=== PATIENT | female | born 1945 | race Caucasian/White ===

== ENCOUNTER 2023-12-15 14:11 | Outpatient (OUT) | payer MEDICARE, OTHER, SELFPAY ==
[2023-12-16 16:10] LABS: Deamidated Gliadin Abs, IgA 7 units (0-19); Deamidated Gliadin Abs, IgG 4 units (0-19); Endomysial Antibody IgA Negative (Negative); Immunoglobulin A, Qn, Serum 91 mg/dL (64-422); t-Transglutaminase (tTG) IgA <2 U/mL (0-3); t-Transglutaminase (tTG) IgG 2 U/mL (0-5)
== END 2023-12-15 14:12 | disposition home or self-care (01) ==
LOC: LAB 14:11
DX: R19.7 Diarrhea, unspecified (principal); L50.0 Allergic urticaria
CPT/HCPCS: 36415; 82784; 86003; 86231; 86258; 86364

== ENCOUNTER 2024-02-09 13:35 | Outpatient (OUT) | payer MEDICARE, OTHER, SELFPAY ==
[2024-02-09 14:26] LABS: Erythrocyte Sedimentation Rate 4 mm/hr (<=30)
[2024-02-09 14:29] LABS: Bilirubin Urine NEGATIVE (NEGATIVE); Blood Urine NEGATIVE (NEGATIVE); Clarity Urine CLEAR (CLEAR); Color Urine YELLOW (YELLOW); Glucose Urine UA NEGATIVE (NEGATIVE); Ketones Urine TRACE mg/dL (NEGATIVE); Leukocyte Esterase Urine NEGATIVE (NEGATIVE); Nitrite Urine NEGATIVE (NEGATIVE); Protein Urine NEGATIVE (NEG/TRACE); Specific Gravity Urine >=1.030 (1.005-1.025); Urobilinogen Urine 0.2 EU/dL (0.2-1.0); pH Urine 5.5 (5.0-9.0)
[2024-02-09 14:41] LABS: Basophils Absolute Auto 0.1 10^3/uL (0.0-0.1); Basophils Percent Auto 0.8 % (0.2-2.0); Eosinophils Absolute Auto 0.3 10^3/uL (0.0-0.7); Eosinophils Percent Auto 3.8 % (0.9-7.0); Hemoglobin 13.3 g/dL (12.0-16.0); Immature Granulocytes Abs Auto 0.03 10^3/uL (0.00-0.03); Immature Granulocytes Pct Auto 0.4 % (0.0-0.5); Lymphocytes Absolute Auto 1.6 10^3/uL (1.2-3.8); Mean Corpuscular HGB Conc 34.1 g/dL (29.9-35.2); Mean Corpuscular Hemoglobin 30.1 pg (26.7-34.0); Mean Corpuscular Volume 88.2 fL (81.0-99.0); Mean Platelet Volume 9.9 fL (9.5-13.5); Monocytes Absolute Auto 0.8 10^3/uL (0.3-0.8); Monocytes Percent Auto 10.7 % (1.7-12.0); Neutrophils Absolute Auto 4.7 10^3/uL (1.4-6.5); Neutrophils Percent Auto 62.3 % (43.0-75.0); Platelet Count 152 10^3/uL (150-450); Red Blood Count 4.42 10^6/uL (4.20-5.40); Red Cell Distribution Width 11.9 % (11.0-15.0); White Blood Count 7.5 10^3/uL (4.0-11.0)
[2024-02-09 14:47] LABS: C Reactive Protein <0.50 mg/dL (<=0.50); Estimated GFR (African America >60 (>=60); Estimated GFR (Non-African Ame >60 (>=60)
[2024-02-09 14:50] LABS: Bacteria Urine SMALL #/HPF (NONE SEEN); Crystals Seen? None Seen #/HPF (None Seen); Mucus Urine MODERATE (NONE SEEN); Squamous Epithelial Cell Urine RARE #/LPF (NONE/RARE); WBC Urine 0-2 #/HPF (NONE SEEN)
[2024-02-09 14:51] LABS: Cast Seen? NONE SEEN #/LPF (NONE SEEN)
== END 2024-02-09 13:36 | disposition home or self-care (01) ==
LOC: LAB 13:37
PROVIDERS: Visit Provider Internal Medicine Rheumatology
DX: M35.9 Systemic involvement of connective tissue, unspecified (principal)
CPT/HCPCS: 36415; 81001; 82565; 85025; 85652; 86140

== ENCOUNTER 2024-07-14 12:22 | Outpatient (OUT) | payer MEDICARE, OTHER, SELFPAY ==
--- OUTSIDE RECORDS SUMMARY | 2024-07-14 12:27 | XMS_ITS | CCD ---
Author Organization [facility] Care Team Providers Care Mailroom Personnel Name Role Phone ADELINA TsaiJIAN Galaviz A Primary Care Provider MD Amanda Hannon Attending Provider DR AMANDA HANNON Consulting Unavailable GINA, BELLA Primary Care Unavailable DR AMANDA HANNON Attending Unavailable DR AMANDA HANNON Admitting Unavailable ADELINA TsaiBC Bella A Primary Care Provider MD Amanda Hannon Attending Provider GINA, BELLA A Primary Care Unavailable JANE OLMEDO Primary Care UnavailDELBERT Kwon Attending Unavailable AMANDA HANNON Referring Unavailable ADELINA TsaiBC Bella A Primary Care Provider MD Amanda Hannon Attending Provider Amanda Hannon Admitting Unavailable Gina, Bella A Primary Care Unavailable Amanda Hannon Attending Unavailable Amanda Hannon Attending Unavailable Gina, Bella A Primary Care Unavailable Amanda Hannon Admitting Unavailable Gina, Bella A Primary Care Unavailable Amanda Hannon Admitting Unavailable Amanda Hannon Attending Unavailable Amanda Hannon Admitting Unavailable Gina, Bella A Primary Care Unavailable Amanda Hannon Attending Unavailable Amanda Hannon Admitting Unavailable Gina, Bella A Primary Care Unavailable Amanda Hannon Attending Unavailable Mary Emery MD Primary Care Provider SHERRY SINCLAIR Attending Unavailable MARY EMERY Referring Unavailable MARY EMERY Primary Care Unavailable MARY EMERY Attending Unavailable MARY EMERY Referring Unavailable YULY, MUHAMID M Primary Care Unavailable RADHA, MOHAMMED Attending Unavailable YULY, MUHAMID M Referring Unavailable YULY, MUHAMID M Primary Care Unavailable RADHA, MOHAMMED Attending Unavailable YULY, MUHAMID M Referring Unavailable YULY, MUHAMID M Primary Care Unavailable RADHA, MOHAMMED Attending Unavailable YULY, MUHAMID M Referring Unavailable YULY, MUHAMID M Primary Care Unavailable RADHA, MOHAMMED Attending Unavailable YULY, MUHAMID M Referring Unavailable YULY, MUHAMID M Primary Care Unavailable YULY, MUHAMID M Referring Unavailable YULY, MUHAMID M Primary Care Unavailable ALEJANDRA CHAVEZ Attending Unavailable RAMQUINTON, ALEJANDRA Baez Attending Unavailable ALEJANDRA CHAVEZ Attending Unavailable ALEJANDRA CHAVEZ Attending Unavailable RAMQUINTON, ALEJANDRA Baez Attending Unavailable RAMBASERacquel, ALEJANDRA Baez Attending Unavailable ALBERTO CROCKETT Attending Unavailable Allergies Allergy Classification Reported Allergen(s) Allergy Type Date of Onset Reaction(s) Facility (10 sources) Cortisone; Translations: [CORTISONE] Drug Allergy 9 Unknown Reaction [facility] (10 sources) Penicillins; Translations: [PENICILLINS] Allergy to substance 7 Rash [facility] (1 source) Hydroxychloroqu ine; Translations: [HYDROXYCHLOROQ UINE] Drug Allergy 3 [facility] Repository (3 sources) WALNUT; Translations: [WALNUT] Propensity to adverse reactions to drug (disorder) 9 Facial Swelling [facility] Repository (2 sources) predniSONE; Translations: [PREDNISONE] Drug Allergy 8 [facility] (2 sources) Sodium Fluoride; Translations: [FLUORIDE (SODIUM)] Drug Allergy 8 [facility] Medications Current Medications Medication Drug Class(es) Dates Sig (Normalized) Sig (Original) ascorbic acid 500 mg oral tablet (6 sources) Vitamin C Start: 08-01-2020 take 1 tablet by mouth once daily Ascorbic Acid (Vitamin C) (Vitamin C) 500 mg Tablet Active 500 MG PO Daily August 01, 2020 12:00am Cbd (6 sources) Start: 08-01-2020 Cbd Active August 01, 2020 2:54pm Start: 08-01-2020 Cbd Active Jul 12:00am Start: 08-01-2020 Cbd Active Oct scott 2019 11:00pm cholecalciferol 0.025 mg oral tablet (6 sources) Vitamin D Start: 08-01-2020 take 1 tablet by mouth once daily Cholecalciferol (Vitamin D3) (Vitamin D3) 25 mcg (1,000 unit) Tablet Active 25 MCG PO Daily August 01, 2020 12:00am clonazePAM 0.5 mg oral tablet (1 source) Benzodiazepine Start: 09-13-2023 take 1 tablet by mouth twice daily as needed clonazePAM (KlonoPIN) 0.5 mg tablet Indications: Primary insomnia Take 1 tablet (0.5 mg total) by mouth 2 (two) times a day as needed (insomnia) for up to 30 days. 60 tablet 0 09/13/2023 Active estradiol 0.1 mg/ml vaginal cream (1 source) Estrogen Start: 06-28-2023 estradioL (ESTRACE) 0.01 % (0.1 mg/gram) vaginal cream 1GM PV @HS 2X/WK 42.5 g 1 06/28/2023 Active fexofenadine hydrochloride 60 mg oral tablet (1 source) Histamine-1 Receptor Antagonist Start: 07-16-2023 take 1 tablet by mouth in the morning, then take 1 tablet by mouth at bedtime fexofenadine (LANA) 60 mg tablet Indications: Allergic urticaria Take 1 tablet (60 mg total) by mouth in the morning and 1 tablet (60 mg total) before bedtime. 60 tablet 2 07/16/2023 Active hydroxychloroquine sulfate 200 mg oral tablet (7 sources) Antimalarial, Antirheumatic Agent Start: 08-01-2020 Hydroxychloroquine (Plaquenil) 200 mg tablet Active 200 MG PO As Directed August 01, 2020 12:00am takes daily alternating with one tab twice daily Magnesium (6 sources) Start: 08-01-2020 take 250 mg by mouth once daily Magnesium Active 250 MG PO Daily August 01, 2020 2:54pm Start: 08-01-2020 take 250 mg by mouth once shaun y Magnesium Active 250 MG PO Daily August 01, 2020 12:00am Start: 08-01-2020 take 250 mg by mouth once shaun y Magnesium Active 250 MG PO Daily July 31, 2020 11:00pm melatonin 5 mg oral tablet (6 sources) Start: 08-01-2020 take 5 mg by mouth at bedtime Melatonin Active 5 MG PO Bedtime August 01, 2020 12:00am omeprazole 20 mg delayed release oral capsule (7 sources) Proton Pump Inhibitor Start: 12-23-2023 take 1 capsule by mouth in the morning omeprazole (PriLOSEC) 20 mg capsule Take 1 capsule (20 mg total) by mouth in the morning. 30 capsule 1 12/23/2023 Active Start: 08-01-2020 take 20 mg by mouth once daily Omeprazole Active 20 MG PO Daily August 01, 2020 12:00am turmeric/turmeric ext/pepr ext (turmeric-turmeric ext-pepper) 900-100-5 mg capsule (1 source) Start: 07-23-2020 turmeric/turmeric ext/pepr ext (turmeric-turmeric ext-pepper) 900-100-5 mg capsule daily. 0 07/23/2020 Active UNABLE TO FIND (1 source) UNABLE TO FIND M ed Name: CBD Oil mixed w/ lotion 0 Active vitamin b12 1 mg oral tablet (6 sources) Vitamin B12 Start: 08-01-2020 take 1 tablet by mouth once daily Cyanocobalamin (Vitamin B-12) (Vitamin B-12) 1,000 mcg Tablet Active 1000 MCG PO Daily August 01, 2020 12:00am Problems Active Problems Problem Classification Problem Date Documented Date Episodic/Chronic Cardiac dysrhythmias (2 sources) Multiple premature ventricular complexes; Translations: [Ventricular premature depolarization] Onset: 12-31-2020 12-31-2020 Chronic Cardiac dysrhythmias (1 source) Palpitations; Translations: [Palpitations] 03-22-2018 Episodic Conditions associated with dizziness or vertigo (4 sources) Dizziness; Translations: [Dizziness and giddiness] Onset: 12-31-2020 03-22-2018 Episodic Deficiency and other anemia (1 source) Anemia, unspecified; Translations: [ANEMIA UNSPECIFIED] Onset: 11-20-2022 Episodic Headache; including migraine (1 source) Headache; Translations: [Headache] 03-22-2018 Episodic Heart valve disorders (3 sources) Nonrheumatic aortic (valve) insufficiency; Translations: [Aortic valve disorders] Onset: 03-04-2023 03-04-2023 Chronic Immunizations and screening for infectious disease (6 sources) Direct Lizette test positive; Translations: [Other specified abnormal immunological findings in serum] 08-01-2020 Episodic Menopausal disorders (1 source) Atrophy of vagina; Translations: [Postmenopausal atrophic vaginitis] Onset: 11-14-2021 11-14-2021 Chronic Miscellaneous mental health disorders (1 source) Primary insomnia; Translations: [Primary insomnia] Onset: 03-17-2023 03-17-2023 Chronic Other and ill-defined heart disease (1 source) Diastolic dysfunction; Translations: [Other ill-defined heart diseases] Onset: 12-31-2020 12-31-2020 Chronic Other connective tissue disease (6 sources) Paraparesis; Translations: [Other symptoms and signs involving the musculoskeletal system] 08-01-2020 Episodic Other inflammatory condition of skin (4 sources) Itching of skin; Translations: [Pruritus, unspecified] 08-01-2020 Episodic Other inflammatory condition of skin (2 sources) Pruritus, unspecified; Translations: [Pruritus] 08-01-2020 Episodic Other upper respiratory disease (1 source) Throat irritation; Translations: [Other diseases of pharynx] 12-27-2023 Episodic Systemic lupus erythematosus and connective tissue disorders (12 sources) Undifferentiated connective tissue disease; Translations: [Systemic involvement of connective tissue, unspecified] Onset: 2011 08-01-2020 Chronic Unclassified (1 source) Other specified necrotizing vasculopathies; 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] Onset: 11-19-2022 Unclassified (1 source) 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; 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] Onset: 11-18-2022 Past or Other Problems Problem Classification Problem Date Documented Date Episodic/Chronic Congestive heart failure; nonhypertensive (1 source) Left heart failure; Translations: [Left ventricular failure, unspecified] Onset: 08-24-2022 Resolved: 04-07-2023 04-07-2023 Chronic Coronary atherosclerosis and other heart disease (1 source) Angina pectoris; Translations: [Angina pectoris, unspecified] Onset: 08-24-2022 Resolved: 04-07-2023 04-07-2023 Chronic Malaise and fatigue (1 source) Exhaustion; Translations: [Other fatigue] Onset: 11-04-2019 03-07-2021 Episodic Mood disorders (1 source) Mood disorders Onset: 08-31-2023 08-31-2023 Nonmalignant breast conditions (1 source) Mastodynia; Translations: [Mastodynia] Onset: 07-14-2017 Resolved: 01-22-2022 01-22-2022 Episodic Other aftercare (1 source) Removal of sutures done; Translations: [Encounter for removal of sutures] Onset: 10-05-2018 Resolved: 08-21-2021 08-21-2021 Episodic Other circulatory disease (1 source) Syncope due to orthostatic hypotension; Translations: [Orthostatic hypotension] Onset: 03-07-2021 03-07-2021 Episodic Other connective tissue disease (1 source) Fibromyalgia; Translations: [Fibromyalgia] Onset: 12-31-2020 12-31-2020 Episodic Other connective tissue disease (1 source) H/O: Disorder; Translations: [Personal history of other diseases of the musculoskeletal system and connective tissue] Onset: 12-31-2020 12-31-2020 Episodic Other connective tissue disease (1 source) Fibromyalgia; Translations: [Fibromyalgia] Onset: 12-31-2020 Episodic Other ear and sense organ disorders (1 source) Impacted cerumen in left ear; Translations: [Impacted cerumen, left ear] Onset: 12-09-2020 12-09-2020 Episodic Other lower respiratory disease (1 source) Dyspnea on exertion; Translations: [Other forms of dyspnea] Onset: 03-24-2018 03-24-2018 Episodic Other screening for suspected conditions (not mental disorders or infectious disease) (7 sources) Complement level below reference range; Translations: [Other specified abnormal findings of blood chemistry] Onset: 2011 08-01-2020 Episodic Other skin disorders (1 source) Eruption; Translations: [Rash and other nonspecific skin eruption] Onset: 07-27-2019 07-27-2019 Episodic Other skin disorders (1 source) Xerosis cutis; Translations: [Xerosis cutis] Onset: 01-27-2024 Episodic Other upper respiratory disease (1 source) Other diseases of pharynx; Translations: [Other diseases of pharynx] Onset: 01-27-2024 Episodic Other upper respiratory disease (1 source) Pain in throat Onset: 12-23-2023 Episodic Syncope (1 source) Syncope and collapse; Translations: [Syncope and collapse] Onset: 11-21-2020 11-21-2020 Episodic Unclassified (1 source) Onset: 03-07-2021 03-07-2021 Results Test Name Value Interpretation Reference Range Facility Automated erythrocytes count in urine sediment (number/area)Ordered By: Amanda Hannon on 06-03-2023 RBC Auto (Urine sed) [#/Area] 1-2 [HPF] 0-4 [facility] Automated leukocytes count i n urine sediment (number/area)Ordered By: Amanda Hannon on 06-03-2023 WBC Auto (Urine sed) [#/Area] 5-9 [HPF] 0-4 [facility] Basophils Auto (Bld) [#/Vol] Ordered By: Amanda Hannon on 06-03-2023 Basophils (Bld) [#/Vol] 0.0 10*3/uL 0.0-0.2 [facility] Basophils/100 WBC Auto (Bld) Ordered By: Amanda Hannon on 06-03-2023 Basophils/100 WBC (Bld) 0.4 % . [facility] Bilirubin Test strip Ql (U)O rdered By: Amanda Hannon on 06-03-2023 Bilirubin Ql (U) Negative Negative [facility] Color Auto (U)Ordered By: Elsa Hannon on 06-03-2023 Color (U) Yellow Yellow [facility] Complement C3on 06-03-2023 Complement C3 81 mg/dL Low 82-167 [facility] Comment on above: Result Comment: Perf ormed at: - [facility] [address] [id number] Manager Animation: Franky Adler PhD, Phone: [phone] Performed By: #### C RP, CREAT, ESR, CBC, TSH3 #### [address] Complement C4on 06-03-2023 Complement C4 <2 Low 12-38 [facility] Comment on above: Result Comment: PERF ORMED BY: [place] [address] PATHOLOGIST [employer] TELE[employer]ION ANNOUNCER JIANLAN SUN M.D. Performed By: #### C RP, CREAT, ESR, CBC, TSH3 #### [address] Complete Blood Count Auto Di ffon 06-03-2023 Basophils (Bld) [#/Vol] 0.0 10*3/uL Normal 0.0-0.2 [facility] Comment on above: Performed By: #### C RP, CREAT, ESR, CBC, TSH3 #### [address] Basophils/100 WBC (Bld) 0.4 % Normal . [facility] Comment on above: Performed By: #### C RP, CREAT, ESR, CBC, TSH3 #### [address] Eosinophils (Bld) [#/Vol] 0.2 10*3/uL Normal 0.0-0.45 [facility] Comment on above: Performed By: #### C RP, CREAT, ESR, CBC, TSH3 #### [address] Eosinophils/100 WBC (Bld) 2.4 % Normal . [facility] Comment on above: Performed By: #### C RP, CREAT, ESR, CBC, TSH3 #### [address] Erythrocyte distribution width (RBC) [Ratio] 12.2 % Normal 11.9-15.3 [facility] Comment on above: Performed By: #### C RP, CREAT, ESR, CBC, TSH3 #### [address] Hematocrit (Bld) [Volume fraction] 37.4 % Normal 34.0-46.4 [facility] Comment on above: Performed By: #### C RP, CREAT, ESR, CBC, TSH3 #### [address] Hemoglobin (Bld) [Mass/Vol] 13.2 g/dL Normal 11.8-15.4 [facility] Comment on above: Performed By: #### C RP, CREAT, ESR, CBC, TSH3 #### [address] Lymphocytes (Bld) [#/Vol] 1.4 10*3/uL Normal 1.00-4.8 [facility] Comment on above: Performed By: #### C RP, CREAT, ESR, CBC, TSH3 #### [address] Lymphocytes/100 WBC (Bld) 20.9 % Normal . [facility] Comment on above: Performed By: #### C RP, CREAT, ESR, CBC, TSH3 #### [address] MCH (RBC) [Entitic mass] 33.7 pg Normal 24.7-34.3 [facility] Comment on above: Performed By: #### C RP, CREAT, ESR, CBC, TSH3 #### [address] MCV (RBC) [Entitic vol] 95.4 fL Normal 80-100 [facility] Comment on above: Performed By: #### C RP, CREAT, ESR, CBC, TSH3 #### [address] Mean Corpuscular HGB Conc 35.3 g/dL High 32.0-35.0 [facility] Comment on above: Performed By: #### C RP, CREAT, ESR, CBC, TSH3 #### [address] Monocytes (Bld) [#/Vol] 0.7 10*3/uL Normal 0.0-0.8 [facility] Comment on above: Performed By: #### C RP, CREAT, ESR, CBC, TSH3 #### [address] Monocytes/100 WBC (Bld) 11.0 % Normal . [facility] Comment on above: Performed By: #### C RP, CREAT, ESR, CBC, TSH3 #### [address] Neutrophils (Bld) [#/Vol] 4.3 10*3/uL Normal 1.8-7.7 [facility] Comment on above: Performed By: #### C RP, CREAT, ESR, CBC, TSH3 #### [address] Neutrophils/100 WBC (Bld) 65.3 % Normal . [facility] Comment on above: Performed By: #### C RP, CREAT, ESR, CBC, TSH3 #### [address] NRBC% 0.1 /100{WBC} Normal 0-0.5 [facility] Comment on above: Performed By: #### C RP, CREAT, ESR, CBC, TSH3 #### [address] Platelet mean volume (Bld) [Entitic vol] 8.0 fL Normal 6.3-10.7 [facility] Comment on above: Performed By: #### C RP, CREAT, ESR, CBC, TSH3 #### [address] Platelets (Bld) [#/Vol] 175 10*3/uL Normal 150-450 [facility] Comment on above: Performed By: #### C RP, CREAT, ESR, CBC, TSH3 #### [address] RBC (Bld) [#/Vol] 3.92 10*6/uL Normal 3.60-5.00 [facility] Comment on above: Performed By: #### C RP, CREAT, ESR, CBC, TSH3 #### [address] WBC (Bld) [#/Vol] 6.5 10*3/uL Normal 3.8-11.6 [facility] Comment on above: Performed By: #### C RP, CREAT, ESR, CBC, TSH3 #### [facility] [address] Creatinineon 06-03-2023 Creatinine [Mass/Vol] 0.69 mg/dL Normal 0.60-1.20 [facility] Comment on above: Performed By: #### C RP, CREAT, ESR, CBC, TSH3 #### [address] GFR/1.73 sq M.predicted MDRD (S/P/Bld) [Vol rate/Area] mL/min/{1.73_m2} Normal [facility] Comment on above: Result Comment: PERF ORMED BY: [place] [address] PATHOLOGIST [employer] TELEVISION ANNOUNCER CHRISTOPHE GRIJALVA M.D. Performed By: #### C RP, CREAT, ESR, CBC, TSH3 #### [address] Creatinine [Mass/volume] in Serum or PlasmaOrdered By: Amanda Hannon on 06-03-2023 Creatinine [Mass/Vol] 0.69 mg/dL 0.60-1.20 [facility] Dipstick and Microscopicon 0 06-03-2023 Appearance (U) Turbid Critically abnormal Clear [facility] Comment on above: Order Comment: Name Collection Type:: Clean-Voided Midstream Performed By: #### C RP, CREAT, ESR, CBC, TSH3 #### [address] Bacteria,Urine None Seen Normal None Seen [facility] Comment on above: Order Comment: Name Collection Type:: Clean-Voided Midstream Performed By: #### C RP, CREAT, ESR, CBC, TSH3 #### [address] Bilirubin,Urine Negative Normal Negative [facility] Comment on above: Order Comment: Name Collection Type:: Clean-Voided Midstream Performed By: #### C RP, CREAT, ESR, CBC, TSH3 #### [address] Color (U) Yellow Normal Yellow [facility] Comment on above: Order Comment: Name Collection Type:: Clean-Voided Midstream Performed By: #### C RP, CREAT, ESR, CBC, TSH3 #### [facility] [address] Glucose Ql (U) Normal Normal Normal [facility] Comment on above: Order Comment: Name Collection Type:: Clean-Voided Midstream Performed By: #### C RP, CREAT, ESR, CBC, TSH3 #### [facility] [address] [place] [address] [place] Hyaline Casts,Urine 9-19 High 0-8 [facility] Comment on above: Order Comment: Name Collection Type:: Clean-Voided Midstream Result Comment: PERF ORMED BY: [place] [address] PATHOLOGIST [employer] TELEVISION ANNOUNCER CHRISTOPHE GRIJALVA M.D. Performed By: #### C RP, CREAT, ESR, CBC, TSH3 #### [facility] [address] [place] [address] [place] Ketones Ql (U) Trace High Negative [facility] Comment on above: Order Comment: Name Collection Type:: Clean-Voided Midstream Performed By: #### C RP, CREAT, ESR, CBC, TSH3 #### [facility] [address] [place] [address] [place] Leukocyte esterase Test strip Ql (U) 1+ High Negative [facility] Comment on above: Order Comment: Name Collection Type:: Clean-Voided Midstream Performed By: #### C RP, CREAT, ESR, CBC, TSH3 #### [facility] [address] [place] [address] [place] Nitrite,Urine Negative Normal Negative [facility] Comment on above: Order Comment: Name Collection Type:: Clean-Voided Midstream Performed By: #### C RP, CREAT, ESR, CBC, TSH3 #### [place] [address] [place] Occult Blood,Urine Negative Normal Negative [facility] Comment on above: Order Comment: Name Collection Type:: Clean-Voided Midstream Performed By: #### C RP, CREAT, ESR, CBC, TSH3 #### [address] pH (U) 5.0 [pH] Normal 5.0-9.0 [facility] Comment on above: Order Comment: Name Collection Type:: Clean-Voided Midstream Performed By: #### C RP, CREAT, ESR, CBC, TSH3 #### [address] Protein,Urine Trace High Negative [facility] Comment on above: Order Comment: Name Collection Type:: Clean-Voided Midstream Performed By: #### C RP, CREAT, ESR, CBC, TSH3 #### [address] RBC,Urine 1-2 Normal 0-4 [facility] Comment on above: Order Comment: Name Collection Type:: Clean-Voided Midstream Performed By: #### C RP, CREAT, ESR, CBC, TSH3 #### [address] Specificy [place],Urine 1.028 Normal 1.001-1.030 [facility] Comment on above: Order Comment: Name Collection Type:: Clean-Voided Midstream Performed By: #### C RP, CREAT, ESR, CBC, TSH3 #### [address] Squamous Epithelial Cell,Urine 0-1 Normal 0-2 [facility] Comment on above: Order Comment: Name Collection Type:: Clean-Voided Midstream Performed By: #### C RP, CREAT, ESR, CBC, TSH3 #### [address] Urobilinogen,Urine Normal Normal Normal [facility] Comment on above: Order Comment: Name Collection Type:: Clean-Voided Midstream Performed By: #### C RP, CREAT, ESR, CBC, TSH3 #### [address] WBC,Urine 5-9 High 0-4 [facility] Comment on above: Order Comment: Name Collection Type:: Clean-Voided Midstream Performed By: #### C RP, CREAT, ESR, CBC, TSH3 #### [facility] [address] Eosinophils Auto (Bld) [#/Vo l]Ordered By: Amanda Hannon on 06-03-2023 Eosinophils (Bld) [#/Vol] 0.2 10*3/uL 0.0-0.45 [facility] Eosinophils/100 WBC Auto (Bl d)Ordered By: Amanda Hannon on 06-03-2023 Eosinophils/100 WBC (Bld) 2.4 % . [facility] Erythrocyte Sedimentation Ra malachi 06-03-2023 ESR (Bld) [Velocity] 2 mm/h Normal 0-29 [facility] Comment on above: Result Comment: PERF ORMED BY: [place] [address] PATHOLOGIST [employer] TELEVISION ANNOUNCER CHRISTOPHE GRIJALVA M.D. Performed By: #### C RP, CREAT, ESR, CBC, TSH3 #### [facility] [address] [place] [address] Erythrocyte distribution wid th Auto (RBC) [Ratio]Ordered By: Amanda Hannon on 06-03-2023 Erythrocyte distribution width (RBC) [Ratio] 12.2 % 11.9-15.3 [facility] Erythrocyte sedimentation ra te by Photometric methodOrdered By: Amanda Hannon on 06-03-2023 ESR Photometric method (Bld) [Velocity] 2 mm/hr 0-29 [facility] Hematocrit Auto (Bld) [Volum e fraction]Ordered By: Amanda Hannon on 06-03-2023 Hematocrit (Bld) [Volume fraction] 37.4 % 34.0-46.4 [facility] Hemoglobin [Mass/volume] in BloodOrdered By: Amanda Hannon on 06-03-2023 Hemoglobin (Bld) [Mass/Vol] 13.2 g/dL 11.8-15.4 [facility] Ketones Auto test strip (U) [Mass/Vol]Ordered By: Amanda Hannon on 06-03-2023 Ketones (U) [Mass/Vol] Trace Negative [facility] Laboratory - UrinalysisOrder ed By: Amanda Hannon on 06-03-2023 Hyaline casts LM Ql (Urine sed) 9-19 [LPF] 0-8 [facility] Leukocytes [#/volume] correc haider for nucleated erythrocytes in Blood by Automated counOrdered By: Amanda Hannon on 06-03-2023 WBC corrected for nucl RBC Auto (Bld) [#/Vol] 6.5 10*3/uL 3.8-11.6 [facility] Lymphocytes Auto (Bld) [#/Vo l]Ordered By: Amanda Hannon on 06-03-2023 Lymphocytes (Bld) [#/Vol] 1.4 10*3/uL 1.00-4.8 [facility] Lymphocytes/100 WBC Auto (Bl d)Ordered By: Amanda Hannon on 06-03-2023 Lymphocytes/100 WBC (Bld) 20.9 % . [facility] MCH Auto (RBC) [Entitic mass ]Ordered By: Amanda Hannon on 06-03-2023 MCH (RBC) [Entitic mass] 33.7 pg 24.7-34.3 [facility] MCHC Auto (RBC) [Mass/Vol]Or dered By: Amanda Hannon on 06-03-2023 MCHC (RBC) [Mass/Vol] 35.3 g/dL 32.0-35.0 [facility] MCV Auto (RBC) [Entitic vol] Ordered By: Amanda Hannon on 06-03-2023 MCV (RBC) [Entitic vol] 95.4 fL 80-100 [facility] Monocytes Auto (Bld) [#/Vol] Ordered By: Amanda Hannon on 06-03-2023 Monocytes (Bld) [#/Vol] 0.7 10*3/uL 0.0-0.8 [facility] Monocytes/100 WBC Auto (Bld) Ordered By: Amanda Hannon on 06-03-2023 Monocytes/100 WBC (Bld) 11.0 % . [facility] Neutrophils Auto (Bld) [#/Vo l]Ordered By: Amanda Hannon on 06-03-2023 Neutrophils (Bld) [#/Vol] 4.3 10*3/uL 1.8-7.7 [facility] Neutrophils/100 WBC Auto (Bl d)Ordered By: Amanda Hannon on 06-03-2023 Neutrophils/100 WBC (Bld) 65.3 % . [facility] Nitrite Test strip Ql (U)Ord ered By: Amanda Hannon on 06-03-2023 Nitrite Ql (U) Negative Negative [facility] No Panel InformationOrdered By: Amanda Hannon on 06-03-2023 Estimated GFR (CKD-EPI) > 60.0 mL/Min [facility] Creatinine Clearance (Chem N/A [facility] Nucleated erythrocytes [Pres ence] in Blood by Automated countOrdered By: Amanda Hannon on 06-03-2023 Nucleated RBC Auto Ql (Bld) 0.1 /100{WBC} 0-0.5 [facility] Platelet mean volume Auto (B ld) [Entitic vol]Ordered By: Amanda Hannon on 06-03-2023 Platelet mean volume (Bld) [Entitic vol] 8.0 fL 6.3-10.7 [facility] Platelets Auto (Bld) [#/Vol] Ordered By: Amanda Hannon on 06-03-2023 Platelets (Bld) [#/Vol] 175 10*3/uL 150-450 [facility] Protein Auto test strip (U) [Mass/Vol]Ordered By: Amanda Hannon on 06-03-2023 Protein (U) [Mass/Vol] Trace mg/dL Negative [facility] RBC Auto (Bld) [#/Vol]Ordere d By: Amanda Hannon on 06-03-2023 RBC (Bld) [#/Vol] 3.92 10*6/uL 3.60-5.00 [facility] Specific gravity Auto test s trip (U) [Rel density]Ordered By: Amanda Hannon on 06-03-2023 Specific gravity (U) [Rel density] 1.028 1.001-1.030 [facility] Squamous epithelial cells de tection in urine sediment by light microscopyOrdered By: Amanda Hannon on 06-03-2023 Epithelial cells.squamous LM Ql (Urine sed) 0-1 [HPF] 0-2 [facility] Urine Cultureon 06-03-2023 Bacteria identified Cx Nom (U) <9,000 colonies/ml mixed bacterial skin contaminants 2 Days PERFORMED BY: [facility] [address] [place] [address] PATHOLOGIST [employer]OUNCER CHRISTOPHE GRIJALVA M.D. Normal [facility] Comment on above: Performed By: #### C RP, CREAT, ESR, CBC, TSH3 #### [facility] [address] Urine bacteria detection by automated methodOrdered By: Amanda Hannon on 06-03-2023 Bacteria Auto Ql (U) None seen None Seen [facility] Urine clarity by refractomet ry automatedOrdered By: Amanda Hannon on 06-03-2023 Clarity Refractometry automated (U) Turbid Clear [facility] Urine glucose measurement by automated test strip (mass/volume)Ordered By: Amanda Hannon on 06-03-2023 Glucose Auto test strip (U) [Mass/Vol] Normal mg/dL Normal [facility] Urine hemoglobin detection b y automated test stripOrdered By: Amanda Hannon on 06-03-2023 Hemoglobin Auto test strip Ql (U) Negative Negative [facility] Urine leukocyte esterase det ection by automated test stripOrdered By: Amanda Hannon on 06-03-2023 Leukocyte esterase Auto test strip Ql (U) 1+ Negative [facility] Urobilinogen Auto test strip (U) [Mass/Vol]Ordered By: Amanda Hannon on 06-03-2023 Urobilinogen (U) [Mass/Vol] Normal mg/dL Normal [facility] WBC Auto (Bld) [#/Vol]Ordere d By: Amanda Hannon on 06-03-2023 WBC (Bld) [#/Vol] 6.5 10*3/uL 3.8-11.6 [facility] pH Auto test strip (U)Ordere d By: Amanda Hannon on 06-03-2023 pH (U) 5.0 [pH] 5.0-9.0 [facility] BETA 2 GLYCOPROTEIN, IGGon 0 03-16-2023 Beta 2 glycoprotein 1 IgG IA Qn <9 Normal <20 [facility] Comment on above: Order Comment: Spechaja ashley Type: BLOOD SPECIMEN Ordering Facility: [facility] Address: [address] [place] [address] Result Comment: <20 SGU Negative 20-80 SGU Low Positive >80 SGU High Positive These results were obtained with the [employer] QUANTA Lite B2 GPI IgG OLAF. B2 GPI IgG values obtained with different manufacturers' assay methods may not be used interchangeably. The magnitude of the reported IgG levels cannot be correlated to an endpoint titer. Performed By: #### B MICHELLE LEZAMA, 5076-5, KELSEY MOCTEZUMA #### [facility] CLIA [id number] [facility] [place] [address] [place] Performed By: #### RHIANNA FAJARDO #### [facility] CLIA [id number] [facility] [place] [address] [place] BETA 2 GLYCOPROTEIN, IGMon 0 03-16-2023 Beta 2 glycoprotein 1 IgM IA Qn 27 SMU High <20 [facility] Comment on above: Order Comment: Tabitha ashley Type: BLOOD SPECIMEN Ordering Facility: [facility] Address: [address] [place] [address] Result Comment: <20 SMU Negative 20-80 SMU Low Positive >80 SMU High positive These results were obtained with the [employer] QUANTA Lite B2 GPI IgM OLAF. B2 GPI IgM values obtained with different manufacturers' assay methods may not be used interchangeably. The magnitude of the reported IgM levels cannot be correlated to an endpoint titer. Performed By: #### B MICHELLE LEZAMA, 5076-5, KELSEY MOCTEZUMA #### [facility] CLIA [id number] [address] [place] [address] [place] Beta 2 glycoprotein 1 IgM IA Qn 24 SMU High <20 [facility] Comment on above: Order Comment: Speci men Type: BLOOD SPECIMEN Ordering Facility: [facility] Address: [address] [place] [address] Result Comment: <20 SMU Negative 20-80 SMU Low Positive >80 SMU High positive These results were obtained with the [employer] QUANTA Lite B2 GPI IgM OLAF. B2 GPI IgM values obtained with different manufacturers' assay methods may not be used interchangeably. The magnitude of the reported IgM levels cannot be correlated to an endpoint titer. Performed By: #### 1 4979-9, 96629-7 #### [facility] CLIA [id number] [address] [place] [address] [place] CARDIOLIPIN IGG ABSon 2022 Cardiolipin IgG IA Qn (S) 13.7 GPL Normal <15.0 [facility] Comment on above: Order Comment: [facility] Type: BLOOD SPECIMEN Ordering Facility: [facility] Address: [address] [place] [address] Result Comment: <15 GPL Negative 15-20 GPL Indeterminate >20 GPL Positive The following results were obtained with the [employer] QUANTA Lite JESSICA IgG III OLAF. Cardiolipin IgG values obtained with the different manufacturers' assay methods may not be used interchangeably. The magnitude of the reported IgG levels cannot be correlated to an endpoint titer. Performed By: #### B ETA2G, CARDIG, 5076-5, BETA2M, CARDIM #### [facility] CLIA [id number] [address] [place] [address] [place] CARDIOLIPIN IGM ABSon 2022 Cardiolipin IgM IA Qn (S) >150.0 High <12.5 [facility] Comment on above: Order Comment: [facility] Type: BLOOD SPECIMEN Ordering Facility: [facility] Address: [address] [place] [address] Result Comment: <12. 5 MPL Negative 12.5-20 MPL Indeterminate >20 MPL Positive The following results were obtained with the [employer] QUANTA Lite JESSICA IgM III OLAF. Cardiolipin IgM values obtained with the different manufacturers' assay methods may not be used interchangeably. The magnitude of the reported IgM levels cannot be correlated to an endpoint titer. ??? Performed By: #### B GARRICK2MICHELLE Haskins, 5076-5, KELSEY MOCTEZUMA #### [facility] CLIA [id number] [address] [facility] [place] [address] [place] CBC W Auto Differential pane l (Bld)on 03-16-2023 Basophils (Bld) [#/Vol] 0.04 10*3/uL Normal <0.11 [facility] Comment on above: Order Comment: Speci men Type: BLOOD SPECIMEN Ordering Facility: [facility] Address: [address] [address] Performed By: #### 5 7021-8 #### [facility] CLIA [id number] [address] [place] [address] Basophils/100 WBC (Bld) 0.6 % Normal [facility] Comment on above: Order Comment: Speci men Type: BLOOD SPECIMEN Ordering Facility: [facility] Address: [address] [address] Performed By: #### 5 7021-8 #### [facility] CLIA [id number] [address] [place] [address] Differential cell count method Nom (Bld) Auto Normal [facility] Comment on above: Order Comment: Speci men Type: BLOOD SPECIMEN Ordering Facility: [facility] Address: [address] [address] Performed By: #### 5 7021-8 #### [facility] CLIA [id number] [address] [place] [address] Eosinophils (Bld) [#/Vol] 0.06 10*3/uL Normal <0.46 [facility] Comment on above: Order Comment: Speci men Type: BLOOD SPECIMEN Ordering Facility: [facility] Address: [address] [address] Performed By: #### 5 7021-8 #### [facility] CLIA [id number] [address] [place] [address] Eosinophils/100 WBC (Bld) 0.9 % Normal [facility] Comment on above: Order Comment: Speci men Type: BLOOD SPECIMEN Ordering Facility: [facility] Address: [address] [address] Performed By: #### 5 7021-8 #### [facility] CLIA [id number] [address] [place] [address] Erythrocyte distribution width (RBC) [Ratio] 11.9 % Normal 11.5-15.0 [facility] Comment on above: Order Comment: Speci men Type: BLOOD SPECIMEN Ordering Facility: [facility] Address: [address] [place] [address] Performed By: #### 5 7021-8 #### [facility] CLIA [id number] [address] [place] [address] Hematocrit (Bld) [Volume fraction] 39.7 % Normal 36.0-46.0 [facility] Comment on above: Order Comment: Speci men Type: BLOOD SPECIMEN Ordering Facility: [facility] Address: [address] [place] [address] Performed By: #### 5 7021-8 #### [facility] CLIA [id number] [address] [place] [address] Hemoglobin (Bld) [Mass/Vol] 13.8 g/dL Normal 11.5-15.5 [facility] Comment on above: Order Comment: Speci men Type: BLOOD SPECIMEN Ordering Facility: [facility] Address: [address] [address] Performed By: #### 5 7021-8 #### [facility] CLIA [id number] [address] [place] [address] Immature granulocytes (Bld) [#/Vol] 10*3/uL Normal <0.10 [facility] Comment on above: Order Comment: Speci men Type: BLOOD SPECIMEN Ordering Facility: [facility] Address: [address] [place], [place] [address] Performed By: #### 5 7021-8 #### [facility] CLIA [id number] [address] [place] [address] Immature granulocytes/100 WBC (Bld) 0.2 % Normal [facility] Comment on above: Order Comment: Speci men Type: BLOOD SPECIMEN Ordering Facility: [facility] Address: [address] [address] Performed By: #### 5 7021-8 #### [facility] CLIA [id number] [address] [place] [address] Lymphocytes (Bld) [#/Vol] 1.35 10*3/uL Normal 1.00-4.00 [facility] Comment on above: Order Comment: Speci men Type: BLOOD SPECIMEN Ordering Facility: [facility] Address: [address] [address] Performed By: #### 5 7021-8 #### [facility] CLIA [id number] [address] [place] [address] Lymphocytes/100 WBC (Bld) 20.7 % Normal [facility] Comment on above: Order Comment: Speci men Type: BLOOD SPECIMEN Ordering Facility: [facility] Address: [address] [address] Performed By: #### 5 7021-8 #### [facility] CLIA [id number] [address] [place] [address] MCH (RBC) [Entitic mass] 30.6 pg Normal 26.0-34.0 [facility] Comment on above: Order Comment: Speci men Type: BLOOD SPECIMEN Ordering Facility: [facility] Address: [address] [address] Performed By: #### 5 7021-8 #### [facility] CLIA [id number] [address] [place] [address] MCHC (RBC) [Mass/Vol] 34.8 g/dL Normal 30.5-36.0 [facility] Comment on above: Order Comment: Speci men Type: BLOOD SPECIMEN Ordering Facility: [facility] Address: [address] [address] Performed By: #### 5 7021-8 #### [facility] CLIA [id number] [address] [place] [address] MCV (RBC) [Entitic vol] 88.0 fL Normal 80.0-100.0 [facility] Comment on above: Order Comment: Speci men Type: BLOOD SPECIMEN Ordering Facility: [facility] Address: [address] [address] Performed By: #### 5 7021-8 #### [facility] CLIA [id number] [address] [place] [address] Monocytes (Bld) [#/Vol] 0.53 10*3/uL Normal <0.87 [facility] Comment on above: Order Comment: Speci men Type: BLOOD SPECIMEN Ordering Facility: [facility] Address: [address] [address] Performed By: #### 5 7021-8 #### [facility] CLIA [id number] [address] [place] [address] Monocytes/100 WBC (Bld) 8.1 % Normal [facility] Comment on above: Order Comment: Speci men Type: BLOOD SPECIMEN Ordering Facility: [facility] Address: [address] [address] Performed By: #### 5 7021-8 #### [facility] CLIA [id number] [address] [place] [address] Neutrophils (Bld) [#/Vol] 4.53 10*3/uL Normal 1.45-7.50 [facility] Comment on above: Order Comment: Speci men Type: BLOOD SPECIMEN Ordering Facility: [facility] Address: [address] [address] Performed By: #### 5 7021-8 #### [facility] CLIA [id number] [address] [place] [address] Neutrophils/100 WBC (Bld) 69.5 % Normal [facility] Comment on above: Order Comment: Speci men Type: BLOOD SPECIMEN Ordering Facility: [facility] Address: [address] [address] Performed By: #### 5 7021-8 #### [facility] CLIA [id number] [address] [place] [address] Nucleated RBC (Bld) [#/Vol] 10*3/uL Normal <0.01 [facility] Comment on above: Order Comment: Speci men Type: BLOOD SPECIMEN Ordering Facility: [facility] Address: [address] [address] Performed By: #### 5 7021-8 #### [facility] CLIA [id number] [address] [place] [address] Nucleated RBC/100 WBC (Bld) [Ratio] 0.0 /100 WBC Normal [facility] Comment on above: Order Comment: Speci men Type: BLOOD SPECIMEN Ordering Facility: [facility] Address: [address] [address] Performed By: #### 5 7021-8 #### [facility] CLIA [id number] [address] [place] [address] Platelet mean volume (Bld) [Entitic vol] 10.4 fL Normal 9.0-12.7 [facility] Comment on above: Order Comment: Speci men Type: BLOOD SPECIMEN Ordering Facility: [facility] Address: [address] [address] Performed By: #### 5 7021-8 #### [facility] CLIA [id number] [address] [place] [address] Platelets (Bld) [#/Vol] 163 10*3/uL Normal 150-400 [facility] Comment on above: Order Comment: Speci men Type: BLOOD SPECIMEN Ordering Facility: [facility] Address: [address] [place] [address] Result Comment: Resu lts checked and verified.No clot detected. Performed By: #### 5 7021-8 #### [facility] CLIA [id number] [address] [place] [address] RBC (Bld) [#/Vol] 4.51 10*6/uL Normal 3.90-5.20 [facility] Comment on above: Order Comment: Speci men Type: BLOOD SPECIMEN Ordering Facility: [facility] Address: [address] [place] [address] Performed By: #### 5 7021-8 #### [facility] CLIA [id number] [address] [place] [address] WBC (Bld) [#/Vol] 6.52 10*3/uL Normal 3.70-11.00 [facility] Comment on above: Order Comment: Speci men Type: BLOOD SPECIMEN Ordering Facility: [facility] Address: [address] [place] [address] Performed By: #### 5 7021-8 #### [facility] CLIA [id number] [address] [place] [address] CNOVSPon 03-16-2023 CNOVS Visit (SP) Office ([facility]) BELIA PERRY ([id number]) 1945 F Date Time Provider Department 03/16/23 11:00 AM DELBERT ALLEN During your visit today, we recorded the following information about you: Temperature Pulse Respiration Blood pressure 97.3 degrees 81/minute 16/minute 136/74 Weight Height 45.4 kg 1.42 m Delbert Allen MD 03/16/2023 11:44 PM Signed PATIENT NAME: Belia Perry CLINIC NO.: [id number] ATTENDING PHYSICIAN: Delbert Allen MD DATE OF SERVICE: March 16, [address] Amanda Hannon,thank you for referring Mrs. Belia Perry for an opinion regarding low complement levels CHIEF COMPLAINT: I do not feel right HPI: Belia Perry is a 78 year old year old female with past medical history significant for fibromyalgia and probable systemic lupus erythematous followed by Dr. Hannon. She states that this diagnosis has been made within the past year and the patient is currently on hydroxychloroquine. She also has periods of lightheadedness and presyncope but denies vertigo. She actually had one episode of syncope which was stress related. She had a previous history of hives which she again associates with stress but does have not recurred for some time. She denies any abdominal pain. No history of diabetes, neuropathy, rash, miscarriages, DVT or recurrent infections. She denies any muscle weakness. Her work-up from a rheumatologic standpoint has included negative serologies for SLE and Sjogren's. Low C3 and C4, anticardiolipin IgM positive, negative salivary gland biopsy, positive direct Lizette test in the past and low C1q, CH 50 C2, C3 and C4. She has mild thrombocytopenia with platelets in the 130s to 140s range. No evidence of lymphocytosis. LDH is within normal limits. Her renal function is within normal limits. CRP not elevated normal renal function. Low CO2 low total complement low C4. Negative cryoglobulins. Normal IgG subclasses. 1 episode of weak complement bound direct Lizette test. No lupus inhibitor panel, negative hepatitis serologies as well as a normal serum protein electrophoresis as well as kappa lambda right chain ratios. She has undergone a previous hysterectomy as well as cholecystectomy Father of lung cancer Sister had breast cancer she has 1 brother with multiple myeloma. She does not smoke. She has 1 daughter and she is Current Outpatient Medications Medication Sig hydrOXYchloroQUINE (PLAQUENIL) 200 mg tablet Take by mouth once daily. calcium carbonate/vitamin D3 (CALCIUM + D ORAL) Take by mouth. Magnesium 250 mg tab Take 250 mg by mouth. Cholecalciferol, Vitamin D3, 25 mcg (1,000 unit) cap Take 1,000 Units by mouth once daily. ascorbic acid (VITAMIN C ORAL) Take by mouth. SHZQNEC-[id number]-OREG-CAP RYL ORAL Take by mouth. diphenhydramine HCl (ALLERGY MEDICINE ORAL) Take by mouth. L.acid/B.animalis,bifidum/F OS (PROBIOTIC COMPLEX ORAL) Take by mouth. ZINC ORAL Take by mouth. No current facility-administered medications for this visit. ALLERGIES Allergen Reactions Solomon Swelling Cortisone Unknown Penicillins Unknown PAST MEDICAL HISTORY Diagnosis Date Collagen disease (HCC) Hypocomplementemia (HCC) Immunologic disease (HCC) Thrombocytopenia (HCC) PAST SURGICAL HISTORY Procedure Laterality Date SECTION HX REMOVAL GALLBLADDER TOTAL ABDOM HYSTERECTOMY FAMILY HISTORY Problem Relation Age of Onset Lung Cancer Father Breast Cancer Sister other (bone marrow) Brother Cancer Brother Social History Tobacco Use Smoking status: Never Smokeless tobacco: Never Vaping Use Vaping Use: Never used Substance Use Topics Alcohol use: Never Drug use: Never REVIEW OF SYSTEMS GENERAL: No weight loss, malaise or fevers. No night sweats. HEENT: Negative for headaches, No changes in hearing or vision, no nose bleeds or other nasal problems. RESPIRATORY: Negative for cough, wheezing and shortness of breath CARDIOVASCULAR: Negative for chest pain, leg swelling and palpitations GI: Negative for abdominal discomfort, blood in stools or black stools and change in bowel habits : Negative for dysuria, frequency and incontinence MUSCULOSKELETAL: Negative for joint pain or swelling, back pain, and muscle pain. SKIN: Negative for lesions, rash, and itching. HEMATOLOGY/LYMPHOLOGY Negative for prolonged bleeding, bruising easily, and swollen nodes. NEURO: Negative for numbness or tingling of hands/feet. No weakness. PHYSICAL EXAMINATION: BP 136/74 Pulse 81 Temp 36.3 ?C (97.3 ?F) (Temporal) Resp 16 Ht 142 cm (4' 7.91 ) Wt 45.4 kg (100 lb) SpO2 99% BMI 22.49 kg/m? Wt 45.4 kg (100 lb) BMI 22.49 kg/m2 Last 3 Encounter Wt Readings: Date: Wt: 03/16/2023 45.4 kg (100 lb) General appearance:ECOG PERFORMANCE STATUS: 1- Restricted in physically strenuous acti (more content not included)... Normal [facility] COMPLEMENT DEFICIENCY ASSAYo n 03-16-2023 COMPLEMENT DEF ASSAY 16.0 U/mL Low 41.7-95.1 [facility] Comment on above: Order Comment: Spechaja ashley Type: BLOOD SPECIMEN Order[facility] Facility: [facility] Address: [address] [address] Result Comment: Tota l complement function test is used as an aid in diagnosis of complement deficiencies. It measures the function of the classical pathway including terminal complement components. Clinical correlation is required. Performed By: #### 1 4979-9, 55210-5 #### [facility] CLIA [id number] [address] [place] [address] [place] Cardiolipin IgA Ser IA-aCnco n 03-16-2023 Cardiolipin IgA IA Qn (S) <9.0 Normal <12.0 [facility] Comment on above: Order Comment: Tabitha ashley Type: BLOOD SPECIMEN Ordering Facility: [facility] Address: [address] [place] [address] Result Comment: <12 APL Negative 12-20 APL Indeterminate >20 APL Positive The following results were obtained with the [employer] QUANTA Lite JESSICA IgA III OLAF. Cardiolipin IgA values obtained with the different manufacturers' assay methods may not be used interchangeably. The magnitude of the reported IgA levels cannot be correlated to an endpoint titer. Performed By: #### B ETA2MICHELLE Haskins, 5076-5, BETA2MKELSEY #### [facility] CLIA [id number] [address] [place] [address] [place] IMMUNOFIXATION SCREEN, SERUM on 03-16-2023 MPA RESULT No M protein is identified. Normal No M protein is identified. [facility] Comment on above: Order Comment: Tabitha dion Type: BLOOD SPECIMEN Ordering Facility: [facility] Address: [address] [address] Performed By: #### 1 4979-9, 00097-9 #### [facility] CLIA [id number] [address] [place] [address] [place] STAFF REVIEW (MPA) Reviewed by Jorge lilly MD, Ph.D ([id number]) Normal [facility] Comment on above: Order Comment: Speci men Type: BLOOD SPECIMEN Ordering Facility: [facility] Address: [address] [address] Performed By: #### 1 4979-9, 18163-9 #### [facility] CLIA [id number] [address] [place] [address] [place] IMMUNOGLOBULINS GAMon 2022 IgA [Mass/Vol] 85 mg/dL Normal 70-400 [facility] Comment on above: Order Comment: Speci men Type: BLOOD SPECIMEN Ordering Facility: [facility] Address: [address] [place] [address] Performed By: #### 1 4979-9, 98166-0 #### [facility] CLIA [id number] [address] [place] [address] [place] IgG [Mass/Vol] 639 mg/dL Low 700-1600 [facility] Comment on above: Order Comment: Speci men Type: BLOOD SPECIMEN Ordering Facility: [facility] Address: [address] [place] [address] Performed By: #### 1 4979-9, 36489-9 #### [facility] CLIA [id number] [address] [place] [address] [place] IgM [Mass/Vol] 472 mg/dL High 40-230 [facility] Comment on above: Order Comment: Speci men Type: BLOOD SPECIMEN Ordering Facility: [facility] Address: [address] [address] Performed By: #### 1 4979-9, 71503-7 #### [facility] CLIA [id number] [address] [place] [address] [place] KAPPA/PEOPLES,FREE,SERon 2022 Immunoglobulin light chains.kappa.free (S) [Mass/Vol] 22.2 mg/L High 3.3-19.4 [facility] Comment on above: Order Comment: Speci men Type: BLOOD SPECIMEN Ordering Facility: [facility] Address: [address] [place] [address] Result Comment: Rare ly, increased serum free light chains levels may not be detected or accurately quantified due to prozone phenomenon or in high viscosity samples using this immunoturbidimetric assay. Correlation with other laboratory results and clinical findings is recommended. The [place] Free Light Chain was performed using the Binding Site Optilite immunoturbidimetric method. Result obtained with different assay methods or kits cannot be used interchangeably. Performed By: #### K LFRS #### [facility] CLIA [id number] [address] [place] [address] [place] Immunoglobulin light chains.kappa/Immunog lobulin light chains.lambda (S) [Mass ratio] 1.63 Normal 0.26-1.65 [facility] Comment on above: Order Comment: Speci [facility] Type: BLOOD SPECIMEN Ordering Facility: [facility] Address: [address] [place] [address] Performed By: #### K LFRS #### [facility] CLIA [id number] [address] [place] [address] [place] Immunoglobulin light chains.lambda.free [Mass/Vol] 13.6 mg/L Normal 5.7-26.3 [facility] Comment on above: Order Comment: Speci [facility] Type: BLOOD SPECIMEN Ordering Facility: [facility] Address: [address] [place] [address] Result Comment: Rare ly, increased serum free light chains levels may not be detected or accurately quantified due to prozone phenomenon or in high viscosity samples using this immunoturbidimetric assay. Correlation with other laboratory results and clinical findings is recommended. The [place] Free Light Chain was performed using the Binding Site Optilite immunoturbidimetric method. Result obtained with different assay methods or kits cannot be used interchangeably. Performed By: #### K LFRS #### [facility] CLIA [id number] [address] [place] [address] [place] LDH SerPl-cCncon 03-16-2023 LDH [Catalytic activity/Vol] 208 U/L Normal 135-214 [facility] Comment on above: Order Comment: Tabitha ashley Type: BLOOD SPECIMEN Ordering Facility: [facility] Address: [address] [place], [place] [address] Result Comment: Hemo lysis present. The origin of the hemolysis, in vitro versus an in vivo hemolytic process, cannot be distinguished via this assay alone. In vitro hemolysis may lead to non-physiological (spurious) elevation in lactate dehydrogenase (LDH) results. The result should be interpreted in context of the clinical setting and other test results. Suggest reorder as clinically indicated. Performed By: #### 1 4979-9, 99419-5 #### [facility] CLIA [id number] [address] [place] [address] [place] OF [facility] LUPUS PANELon 03-16-2023 aPTT Coag (Bld) [Time] 30.6 s Normal 24.0-35.1 [facility] Comment on above: Order Comment: Tabitha ashley Type: BLOOD SPECIMEN Ordering Facility: [facility] Address: [address] [place], [place] [address] Performed By: #### 1 4979-9, 00792-9 #### [facility] CLIA [id number] [address] [place] [address] [place] aPTT W excess hexagonal phase phospholipid Coag (PPP) [Time] 52.8 seconds High 34.0-51.8 [facility] Comment on above: Order Comment: Tabitha ashley Type: BLOOD SPECIMEN Ordering Facility: [facility] Address: [address] [place], [place] [address] Performed By: #### 1 4979-9, 86609-7 #### [facility] CLIA [id number] [address] [place] [address] STATES [facility] Delta dRVVT Coag (PPP) [Time diff] 8.1 delta seconds High <7.1 [facility] Comment on above: Order Comment: Tabitha ashley Type: BLOOD SPECIMEN Ordering Facility: [facility] Address: [address] [place], [place] [address] Performed By: #### 1 4979-9, 82770-5 #### [facility] CLIA [id number] [address] [place] [address] [place] dRVVT Coag (PPP) [Time] 38.4 s Normal 32.0-45.7 [facility] Comment on above: Order Comment: Speci men Type: BLOOD SPECIMEN Ordering Facility: [facility] Address: [address] [place] [address] Performed By: #### 1 4979-9, 35061-5 #### [facility] IA [id number] [address] [place] [address] [place] dRVVT factor substitution immediately after 1:2 addition of normal plasma Coag (PPP) [Time] 40.3 seconds Normal 32.0-45.7 [facility] Comment on above: Order Comment: Speci men Type: BLOOD SPECIMEN Ordering Facility: [facility] Address: [address] [place], [place] [address] Performed By: #### 1 4979-9, 33577-4 #### [facility] IA [id number] [address] [place] [address] [place] dRVVT W excess hexagonal phase phospholipid actual/normal Coag (PPP) [Relative time] 44.7 seconds Normal 34.2-47.9 [facility] Comment on above: Order Comment: Speci men Type: BLOOD SPECIMEN Ordering Facility: [facility] Address: [address] [place], [place] [address] Performed By: #### 1 4979-9, 99734-3 #### [facility] IA [id number] [address] [place] [address] [place] dRVVT/dRVVT.excess phospholipid Coag (PPP) [Ratio] 1.20 Normal <1.32 [facility] Comment on above: Order Comment: Speci men Type: BLOOD SPECIMEN Ordering Facility: [facility] Address: [address] Performed By: #### 1 4979-9, 05639-8 #### [facility] CLIA [id number] [address] [place] [address] [place] Lupus anticoagulant neutralization platelet Coag Ql (PPP) Negative Normal Negative [facility] Comment on above: Order Comment: Speci men Type: BLOOD SPECIMEN Ordering Facility: [facility] Address: [address] [place] [address] Performed By: #### 1 4979-9, 55941-7 #### [facility] CLIA [id number] [address] [place] [address] [place] Thrombin time Coag (PPP) [Time] 16.9 seconds Normal <18.6 [facility] Comment on above: Order Comment: Speci men Type: BLOOD SPECIMEN Ordering Facility: [facility] Address: [address] [place] [address] Performed By: #### 1 4979-9, 20836-8 #### [facility] CLIA [id number] [address] [place] [address] [place] PROTEIN ELECTROPHORESIS SERU M (P)on 03-16-2023 Albumin [Mass/Vol] 4.36 g/dL Normal 3.43-5.41 [facility] Comment on above: Order Comment: Speci men Type: BLOOD SPECIMEN Ordering Facility: [facility] Address: [address] [place] [address] Performed By: #### 1 4979-9, 79711-4 #### [facility] CLIA [id number] [address] [place] [address] [place] Alpha 1 globulin Elph [Mass/Vol] 0.26 g/dL Normal 0.18-0.43 [facility] Comment on above: Order Comment: Speci men Type: BLOOD SPECIMEN Ordering Facility: [facility] Address: [address] [place] [address] Performed By: #### 1 4979-9, 36626-8 #### [facility] CLIA [id number] [address] [place] [address] [place] Alpha 2 globulin Elph [Mass/Vol] 0.61 g/dL Normal 0.42-0.98 [facility] Comment on above: Order Comment: Speci men Type: BLOOD SPECIMEN Ordering Facility: [facility] Address: [address] [place], [place] [address] Performed By: #### 1 49799, 58816-0 #### [facility] CLIA [id number] [address] [place] [address] [place] Beta globulin Elph [Mass/Vol] 0.62 g/dL Normal 0.61-1.17 [facility] Comment on above: Order Comment: Speci men Type: BLOOD SPECIMEN Ordering Facility: [facility] Address: [address] [place] [address] Performed By: #### 1 49799, 55508-1 #### [facility] CLIA [id number] [address] [place] [address] [place] Gamma globulin Elph [Mass/Vol] 0.75 g/dL Normal 0.53-1.51 [facility] Comment on above: Order Comment: Speci men Type: BLOOD SPECIMEN Ordering Facility: [facility] Address: [address] [place], [place] [address] Performed By: #### 1 49799, 89798-5 #### [facility] CLIA [id number] [address] [place] [address] [place] M-PROTEIN LOCATION Normal [facility] Comment on above: Order Comment: Speci men Type: BLOOD SPECIMEN Ordering Facility: [facility] Address: [address] [place], [place] [address] Result Comment: Not Applicable. Performed By: #### 1 49799, 33760-8 #### [facility] CLIA [id number] [address] [place] [address] [place] Protein Fractions [Interp] No definitive M protein is identified on protein electrophoresis. Normal No definitive M protein is identified on protein electrophore sis. [facility] Comment on above: Order Comment: Speci men Type: BLOOD SPECIMEN Ordering Facility: [facility] Address: [address] [place] [address] Performed By: #### 1 4979-9, 49459-3 #### [facility] IA [id number] [address] [place] [address] [place] Protein.monoclonal Elph [Mass/Vol] 0.00 g/dL Normal <=0.00 [facility] Comment on above: Order Comment: Speci men Type: BLOOD SPECIMEN Ordering Facility: [facility] Address: [address] [place] [address] Performed By: #### 1 4979-9, 66386-0 #### [facility] IA [id number] [address] [place] [address] [place] SPE STAFF REVIEW Reviewed by Jorge lilly MD, Ph.D ([id number]) Normal [facility] Comment on above: Order Comment: Speci men Type: BLOOD SPECIMEN Ordering Facility: [facility] Address: [address] [place] [address] Performed By: #### 1 4979-9, 28570-1 #### [facility] IA [id number] [address] [place] [address] [place] PT panel Coag (PPP)on 2022 INR Coag (PPP) [Relative time] 1.1 {INR} Normal 0.9-1.3 [facility] Comment on above: Order Comment: Speci men Type: BLOOD SPECIMEN Ordering Facility: [facility] Address: [address] [place] [address] Result Comment: Destinee min K Antagonist (VKA) Therapeutic Range: INR 2 to 3 (Target INR of 2.5) Note: For patients treated with VKA drugs, such as warfarin, the [place] [employer] 2012 Guideline recommends a therapeutic INR range of 2 to 3 (target INR of 2.5). This recommendation includes high-risk patients with antiphospholipid syndrome with previous arterial or venous thromboembolism, current-generation mechanical or bioprosthetic aortic heart valve replacement. Note: Patients with mechanical aortic valve replacement and additional risk factors for thromboembolic events (atrial fibrillation, previous thromboembolism, LV dysfunction, hypercoagulable conditions) or an older generation mechanical AVR (i.e., ball in-Cage) or any mechanical MVR should have a INR therapeutic range of 2.5 to 3.5 (target INR of 3). Ruthtt GH, et al. Chest 2012, 141:7S-47S Seema RA, et al. [facility] 2017, 70: 252-289 Performed By: #### 1 4979-9, 21621-2 #### [facility] CLIA [id number] [address] [place] [address] [place] PT Coag (PPP) [Time] 11.4 s Normal 9.7-13.0 [facility] Comment on above: Order Comment: Speci men Type: BLOOD SPECIMEN Ordering Facility: [facility] Address: [address] [place] [address] Performed By: #### 1 4979-9, 27458-4 #### [facility] CLIA [id number] [address] [place] [address] [place] Prot SerPl-mCncon 03-16-2023 Protein [Mass/Vol] 6.6 g/dL Normal 6.3-8.0 [facility] Comment on above: Order Comment: Speci men Type: BLOOD SPECIMEN Ordering Facility: [facility] Address: [address] [place] [address] Performed By: #### 1 4979-9, 68874-3 #### [facility] CLIA [id number] [facility] [place] [address] [place] aPTT PPPon 03-16-2023 aPTT Coag (PPP) [Time] 27.6 s Normal 23.0-32.4 [facility] Comment on above: Order Comment: Speci men Type: BLOOD SPECIMEN Ordering Facility: [facility] Address: [address] [place] [address] Result Comment: Froz en Plasma Aliquot Performed By: #### 1 4979-9, 16751-3 #### [facility] CLIA [id number] [address] [facility] [place] [address] [place] AH50 (Alternative Pathway)on 02-16-2023 AH50 77 Normal 77-159 [facility] Comment on above: Result Comment: This assay is used for clinical purposes and was developed, and its performance characteristics determined, by [facility]. It has not been cleared or approved by the U.S. Food and Drug Administration. The FDA has determined that such clearance or approval is not necessary. This laboratory is certified under the Clinical Laboratory Improvement Amendments of 1988 (CLIA-88) as qualified to perform high complexity clinical laboratory testing. Performed at: [facility] [id number], [place], [place] [id number] Manager Animation: Harshal Hyatt [facility], Phone: [phone] PERFORMED BY: [address] [place] [address] PATHOLOGIST [employer] TELEVISION ANNOUNCER CHRISTOPHE GRIJALVA M.D. Performed By: #### C RP, CREAT, ESR, CBC, TSH3 #### [address] Complement Total (CH50)on Complement Total (CH50) <17 Low >41 [facility] Comment on above: Result Comment: Age Male Female 1 - 30 days Not Estab. Not Estab. 31 days - 6 months >32 >20 7 months - 17 years >39 >39 >17 years >41 >41 NOTE: The adult ( >17 years ) reference interval range is used to flag abnormals on this report. If the patient is 17 years old or younger, use the table above to determine out of range values. Performed at: [facility] [id number] Manager Animation: Franky Adler PhD, Phone: [phone] PERFORMED BY: [place] [address] PATHOLOGIST [employer] TELEVISION ANNOUNCER CHRISTOPHE GRIJALVA M.D. Performed By: #### C RP, CREAT, ESR, CBC, TSH3 #### [id number] [facility] Direct [place] 02-16-2023 Polyspecific AHG Negative Normal [facility] Comment on above: Result Comment: PERF ORMED BY: [place] [address] PATHOLOGIST [employer] TELEVISION ANNOUNCER CHRISTOPHE GRIJALVA M.D. Haptoglobinon 02-16-2023 Haptoglobin 61 mg/dL Normal 44-215 [facility] Comment on above: Result Comment: PERF ORMED BY: [place] [address] PATHOLOGIST [employer] TELEVISION ANNOUNCER CHRISTOPHE GRIJALVA M.D. Performed By: #### C RP, CREAT, ESR, CBC, TSH3 #### [id number] [facility] LDH Lactate Dehydrogenaseon 02-16-2023 LDH Lactate Dehydrogenase 169 U/L Normal 140-271 [facility] Comment on above: Result Comment: PERF ORMED BY: [place] [address] PATHOLOGIST [employer] TELEVISION ANNOUNCER CHRISTOPHE GRIJALVA M.D. Performed By: #### C RP, CREAT, ESR, CBC, TSH3 #### [id number] [facility] Automated erythrocytes count in urine sediment (number/area)Ordered By: Amanda Hannon on 01-18-2023 RBC Auto (Urine sed) [#/Area] 0-1 [HPF] 0-4 [facility] Automated leukocytes count i n urine sediment (number/area)Ordered By: Amanda Hannon on 01-18-2023 WBC Auto (Urine sed) [#/Area] 5-9 [HPF] 0-4 [facility] Basophils Auto (Bld) [#/Vol] Ordered By: Amanda Hannon on 01-18-2023 Basophils (Bld) [#/Vol] 0.0 10*3/uL 0.0-0.2 [facility] Basophils/100 WBC Auto (Bld) Ordered By: Amanda Hannon on 01-18-2023 Basophils/100 WBC (Bld) 0.3 % . [facility] Bilirubin Test strip Ql (U)O rdered By: Amanda Hannon on 01-18-2023 Bilirubin Ql (U) Negative Negative [facility] Color Auto (U)Ordered By: Elsa Hannon on 01-18-2023 Color (U) Yellow Yellow [facility] Complement C1Q, Quanton - Complement C1Q, Quant 4.4 mg/dL Low 10.3-20.5 [facility] Comment on above: Result Comment: Perf ormed at: [facility] - [facility] [address] [id number] Manager Animation: Krysta Child MD, Phone: [phone] PERFORMED BY: [place] [address] PATHOLOGIST [employer] TELEVISION ANNOUNCER CHRISTOPHE GRIJALVA M.D. Performed By: #### C RP, CREAT, ESR, CBC, TSH3 #### [facility] [address] [place] [address] Complement C3on 01-18-2023 Complement C3 88 mg/dL Normal 82-167 [facility] Comment on above: Result Comment: Perf ormed at: [facility] - [facility] [address] [id number] Manager Animation: Franky Adler PhD, Phone: [phone] Performed By: #### C RP, CREAT, ESR, CBC, TSH3 #### [place] [address] [place] Complement C4on 01-18-2023 Complement C4 <2 Low 12-38 [facility] Comment on above: Performed By: #### C RP, CREAT, ESR, CBC, TSH3 #### [address] Complement Total (CH50)on Complement Total (CH50) <16 Low >41 [facility] Comment on above: Result Comment: Age Male Female 1 - 30 days Not Estab. Not Estab. 31 days - 6 months >32 >20 7 months - 17 years >39 >39 >17 years >41 >41 NOTE: The adult ( >17 years ) reference interval range is used to flag abnormals on this report. If the patient is 17 years old or younger, use the table above to determine out of range values. Performed at: - [facility] [id number] Manager Animation: Franky Adler PhD, Phone: [phone] PERFORMED BY: [place] [address] PATHOLOGIST [employer] TELEVISION ANNOUNCER CHRISTOPHE GRIJALVA M.D. Performed By: #### C RP, CREAT, ESR, CBC, TSH3 #### [address] Complete Blood Count Auto Di ffon 01-18-2023 Basophils (Bld) [#/Vol] 0.0 10*3/uL Normal 0.0-0.2 [facility] Comment on above: Performed By: #### C RP, CREAT, ESR, CBC, TSH3 #### [address] Basophils/100 WBC (Bld) 0.3 % Normal . [facility] Comment on above: Performed By: #### C RP, CREAT, ESR, CBC, TSH3 #### [place] [address] [place] Eosinophils (Bld) [#/Vol] 0.0 10*3/uL Normal 0.0-0.45 [facility] Comment on above: Performed By: #### C RP, CREAT, ESR, CBC, TSH3 #### [place] [address] [place] Eosinophils/100 WBC (Bld) 0.8 % Normal . [facility] Comment on above: Performed By: #### C RP, CREAT, ESR, CBC, TSH3 #### [address] Erythrocyte distribution width (RBC) [Ratio] 12.3 % Normal 11.9-15.3 [facility] Comment on above: Performed By: #### C RP, CREAT, ESR, CBC, TSH3 #### [address] Hematocrit (Bld) [Volume fraction] 39.2 % Normal 34.0-46.4 [facility] Comment on above: Performed By: #### C RP, CREAT, ESR, CBC, TSH3 #### [address] Hemoglobin (Bld) [Mass/Vol] 13.7 g/dL Normal 11.8-15.4 [facility] Comment on above: Performed By: #### C RP, CREAT, ESR, CBC, TSH3 #### [address] Lymphocytes (Bld) [#/Vol] 1.1 10*3/uL Normal 1.00-4.8 [facility] Comment on above: Performed By: #### C RP, CREAT, ESR, CBC, TSH3 #### [address] Lymphocytes/100 WBC (Bld) 19.3 % Normal . [facility] Comment on above: Performed By: #### C RP, CREAT, ESR, CBC, TSH3 #### [address] MCH (RBC) [Entitic mass] 32.5 pg Normal 24.7-34.3 [facility] Comment on above: Performed By: #### C RP, CREAT, ESR, CBC, TSH3 #### [address] MCV (RBC) [Entitic vol] 93.0 fL Normal 80-100 [facility] Comment on above: Performed By: #### C RP, CREAT, ESR, CBC, TSH3 #### [address] Mean Corpuscular HGB Conc 34.9 g/dL Normal 32.0-35.0 [facility] Comment on above: Performed By: #### C RP, CREAT, ESR, CBC, TSH3 #### [address] Monocytes (Bld) [#/Vol] 0.5 10*3/uL Normal 0.0-0.8 [facility] Comment on above: Performed By: #### C RP, CREAT, ESR, CBC, TSH3 #### [address] Monocytes/100 WBC (Bld) 9.2 % Normal . [facility] Comment on above: Performed By: #### C RP, CREAT, ESR, CBC, TSH3 #### [address] Neutrophils (Bld) [#/Vol] 4.0 10*3/uL Normal 1.8-7.7 [facility] Comment on above: Performed By: #### C RP, CREAT, ESR, CBC, TSH3 #### [address] Neutrophils/100 WBC (Bld) 70.4 % Normal . [facility] Comment on above: Performed By: #### C RP, CREAT, ESR, CBC, TSH3 #### [address] NRBC% 0.2 /100{WBC} Normal 0-0.5 [facility] Comment on above: Performed By: #### C RP, CREAT, ESR, CBC, TSH3 #### [address] Platelet mean volume (Bld) [Entitic vol] 8.7 fL Normal 6.3-10.7 [facility] Comment on above: Performed By: #### C RP, CREAT, ESR, CBC, TSH3 #### [facility] [address] Platelets (Bld) [#/Vol] 136 10*3/uL Low 150-450 [facility] Comment on above: Performed By: #### C RP, CREAT, ESR, CBC, TSH3 #### [address] RBC (Bld) [#/Vol] 4.21 10*6/uL Normal 3.60-5.00 [facility] Comment on above: Performed By: #### C RP, CREAT, ESR, CBC, TSH3 #### [address] WBC (Bld) [#/Vol] 5.6 10*3/uL Normal 3.8-11.6 [facility] Comment on above: Performed By: #### C RP, CREAT, ESR, CBC, TSH3 #### [address] Creatine Kinaseon 01-18-2023 CK [Catalytic activity/Vol] 51 U/L Normal 30-223 [facility] Comment on above: Result Comment: PERF ORMED BY: [place] [address] PATHOLOGIST [employer] TELE[employer]ION ANNOUNCER CHRISTOPHE GRIJALVA M.D. Performed By: #### C RP, CREAT, ESR, CBC, TSH3 #### [address] Creatine kinase [Enzymatic a ctivity/volume] in Serum or PlasmaOrdered By: Amanda Hannon on 01-18-2023 CK [Catalytic activity/Vol] 51 U/L 30-223 [facility] Creatinineon 01-18-2023 Creatinine [Mass/Vol] 0.81 mg/dL Normal 0.60-1.20 [facility] Comment on above: Performed By: #### C RP, CREAT, ESR, CBC, TSH3 #### [address] GFR/1.73 sq M.predicted MDRD (S/P/Bld) [Vol rate/Area] mL/min/{1.73_m2} Normal [facility] Comment on above: Result Comment: PERF ORMED BY: [place] [address] PATHOLOGIST [employer] TELEVISION ANNOUNCER CHRISTOPHE GRIJALVA M.D. Performed By: #### C RP, CREAT, ESR, CBC, TSH3 #### [address] Creatinine [Mass/volume] in Serum or PlasmaOrdered By: Amanda Hannon on 01-18-2023 Creatinine [Mass/Vol] 0.81 mg/dL 0.60-1.20 [facility] Dipstick and Microscopicon 0 01-18-2023 Appearance (U) Clear Normal Clear [facility] Comment on above: Order Comment: Name Collection Type:: Clean-Voided Midstream Performed By: #### C UU, ESR, ADDONUAPLUS, CBC, CREAT, CK #### [address] #### COMP C1Q QUANT, C4, C3, CH50 #### [facility] , Bacteria,Urine None Seen Normal None Seen [facility] Comment on above: Order Comment: Name Collection Type:: Clean-Voided Midstream Performed By: #### C UU, ESR, ADDONUAPLUS, CBC, CREAT, CK #### [address] #### COMP C1Q QUANT, C4, C3, CH50 #### [facility] , Bilirubin,Urine Negative Normal Negative [facility] Comment on above: Order Comment: Name Collection Type:: Clean-Voided Midstream Performed By: #### C UU, ESR, ADDONUAPLUS, CBC, CREAT, CK #### [address] #### COMP C1Q QUANT, C4, C3, CH50 #### [facility] , Color (U) Yellow Normal Yellow [facility] Comment on above: Order Comment: Name Collection Type:: Clean-Voided Midstream Performed By: #### C UU, ESR, ADDONUAPLUS, CBC, CREAT, CK #### [address] #### COMP C1Q QUANT, C4, C3, CH50 #### [facility] , Glucose Ql (U) Normal Normal Normal [facility] Comment on above: Order Comment: Name Collection Type:: Clean-Voided Midstream Performed By: #### C UU, ESR, ADDONUAPLUS, CBC, CREAT, CK #### [address] #### COMP C1Q QUANT, C4, C3, CH50 #### [facility] , Hyaline Casts,Urine 0-8 Normal 0-8 [facility] Comment on above: Order Comment: Name Collection Type:: Clean-Voided Midstream Result Comment: PERF ORMED BY: [place] [address] PATHOLOGIST [employer] TELEVISION ANNOUNCER CHRISTOPHE GRIJALVA M.D. Performed By: #### C UU, ESR, ADDONUAPLUS, CBC, CREAT, CK #### [address] #### COMP C1Q QUANT, C4, C3, CH50 #### [facility] , Ketones Ql (U) Negative Normal Negative [facility] Comment on above: Order Comment: Name Collection Type:: Clean-Voided Midstream Performed By: #### C UU, ESR, ADDONUAPLUS, CBC, CREAT, CK #### [address] #### COMP C1Q QUANT, C4, C3, CH50 #### [facility] , Leukocyte esterase Test strip Ql (U) 2+ High Negative [facility] Comment on above: Order Comment: Name Collection Type:: Clean-Voided Midstream Performed By: #### C UU, ESR, ADDONUAPLUS, CBC, CREAT, CK #### [address] #### COMP C1Q QUANT, C4, C3, CH50 #### [facility] , Nitrite,Urine Negative Normal Negative [facility] Comment on above: Order Comment: Name Collection Type:: Clean-Voided Midstream Performed By: #### C UU, ESR, ADDONUAPLUS, CBC, CREAT, CK #### [address] #### COMP C1Q QUANT, C4, C3, CH50 #### [facility] , Occult Blood,Urine Negative Normal Negative [facility] Comment on above: Order Comment: Name Collection Type:: Clean-Voided Midstream Performed By: #### C UU, ESR, ADDONUAPLUS, CBC, CREAT, CK #### [address] #### COMP C1Q QUANT, C4, C3, CH50 #### [facility] , pH (U) 5.0 [pH] Normal 5.0-9.0 [facility] Comment on above: Order Comment: Name Collection Type:: Clean-Voided Midstream Performed By: #### C UU, ESR, ADDONUAPLUS, CBC, CREAT, CK #### [address] #### COMP C1Q QUANT, C4, C3, CH50 #### [facility] , Protein,Urine Negative Normal Negative [facility] Comment on above: Order Comment: Name Collection Type:: Clean-Voided Midstream Performed By: #### C UU, ESR, ADDONUAPLUS, CBC, CREAT, CK #### [address] #### COMP C1Q QUANT, C4, C3, CH50 #### [facility] , RBC LM.HPF (Urine sed) [#/Area] 0 /[HPF] Normal 0-4 [facility] Comment on above: Order Comment: Name Collection Type:: Clean-Voided Midstream Performed By: #### C UU, ESR, ADDONUAPLUS, CBC, CREAT, CK #### [address] #### COMP C1Q QUANT, C4, C3, CH50 #### [facility] , Specificy [place],Urine 1.016 Normal 1.001-1.030 [facility] Comment on above: Order Comment: Name Collection Type:: Clean-Voided Midstream Performed By: #### C UU, ESR, ADDONUAPLUS, CBC, CREAT, CK #### [address] #### COMP C1Q QUANT, C4, C3, CH50 #### [facility] , Squamous Epithelial Cell,Urine 1-2 Normal 0-2 [facility] Comment on above: Order Comment: Name Collection Type:: Clean-Voided Midstream Performed By: #### C UU, ESR, ADDONUAPLUS, CBC, CREAT, CK #### [address] #### COMP C1Q QUANT, C4, C3, CH50 #### [facility] , Urobilinogen,Urine Normal Normal Normal [facility] Comment on above: Order Comment: Name Collection Type:: Clean-Voided Midstream Performed By: #### C UU, ESR, ADDONUAPLUS, CBC, CREAT, CK #### [address] #### COMP C1Q QUANT, C4, C3, CH50 #### [facility] , WBC,Urine 5-9 High 0-4 [facility] Comment on above: Order Comment: Name Collection Type:: Clean-Voided Midstream Performed By: #### C UU, ESR, ADDONUAPLUS, CBC, CREAT, CK #### [place] [id number] [place] #### COMP C1Q QUANT, C4, C3, CH50 #### [facility] , Eosinophils Auto (Bld) [#/Vo l]Ordered By: Amanda Hannon on 01-18-2023 Eosinophils (Bld) [#/Vol] 0.0 10*3/uL 0.0-0.45 [facility] Eosinophils/100 WBC Auto (Bl d)Ordered By: Amanda Hannon on 01-18-2023 Eosinophils/100 WBC (Bld) 0.8 % . [facility] Erythrocyte Sedimentation Ra malachi 01-18-2023 ESR (Bld) [Velocity] 2 mm/h Normal 0-29 [facility] Comment on above: Result Comment: PERF ORMED BY: [place] [address] PATHOLOGIST [employer] TELEVISION ANNOUNCER CHRISTOPHE GRIJALVA M.D. Performed By: #### C RP, CREAT, ESR, CBC, TSH3 #### [address] Erythrocyte distribution wid th Auto (RBC) [Ratio]Ordered By: Amanda Hannon on 01-18-2023 Erythrocyte distribution width (RBC) [Ratio] 12.3 % 11.9-15.3 [facility] Erythrocyte sedimentation ra te by Photometric methodOrdered By: Amanda Hannon on 01-18-2023 ESR Photometric method (Bld) [Velocity] 2 mm/hr 0-29 [facility] Hematocrit Auto (Bld) [Volum e fraction]Ordered By: Amanda Hannon on 01-18-2023 Hematocrit (Bld) [Volume fraction] 39.2 % 34.0-46.4 [facility] Hemoglobin [Mass/volume] in BloodOrdered By: Amanda Hannon on 01-18-2023 Hemoglobin (Bld) [Mass/Vol] 13.7 g/dL 11.8-15.4 [facility] Ketones Auto test strip (U) [Mass/Vol]Ordered By: Amanda Hannon on 01-18-2023 Ketones (U) [Mass/Vol] Negative Negative [facility] Laboratory - UrinalysisOrder ed By: Amanda Hannon on 01-18-2023 Hyaline casts LM Ql (Urine sed) 0-8 [LPF] 0-8 [facility] Leukocytes [#/volume] correc haider for nucleated erythrocytes in Blood by Automated counOrdered By: Amanda Hannon on 01-18-2023 WBC corrected for nucl RBC Auto (Bld) [#/Vol] 5.6 10*3/uL 3.8-11.6 [facility] Lymphocytes Auto (Bld) [#/Vo l]Ordered By: Amanda Hannon on 01-18-2023 Lymphocytes (Bld) [#/Vol] 1.1 10*3/uL 1.00-4.8 [facility] Lymphocytes/100 WBC Auto (Bl d)Ordered By: Amanda Hannon on 01-18-2023 Lymphocytes/100 WBC (Bld) 19.3 % . [facility] MCH Auto (RBC) [Entitic mass ]Ordered By: Amanda Hannon on 01-18-2023 MCH (RBC) [Entitic mass] 32.5 pg 24.7-34.3 [facility] MCHC Auto (RBC) [Mass/Vol]Or dered By: Amanda Hannon on 01-18-2023 MCHC (RBC) [Mass/Vol] 34.9 g/dL 32.0-35.0 [facility] MCV Auto (RBC) [Entitic vol] Ordered By: Amanda Hannon on 01-18-2023 MCV (RBC) [Entitic vol] 93.0 fL 80-100 [facility] Monocytes Auto (Bld) [#/Vol] Ordered By: Amanda Hannon on 01-18-2023 Monocytes (Bld) [#/Vol] 0.5 10*3/uL 0.0-0.8 [facility] Monocytes/100 WBC Auto (Bld) Ordered By: Amanda Hannon on 01-18-2023 Monocytes/100 WBC (Bld) 9.2 % . [facility] Neutrophils Auto (Bld) [#/Vo l]Ordered By: Amanda Hannon on 01-18-2023 Neutrophils (Bld) [#/Vol] 4.0 10*3/uL 1.8-7.7 [facility] Neutrophils/100 WBC Auto (Bl d)Ordered By: Amanda Hannon on 01-18-2023 Neutrophils/100 WBC (Bld) 70.4 % . [facility] Nitrite Test strip Ql (U)Ord ered By: Amanda Hannon on 01-18-2023 Nitrite Ql (U) Negative Negative [facility] No Panel InformationOrdered By: Amanda Hannon on 01-18-2023 Estimated GFR (CKD-EPI) > 60.0 mL/Min [facility] Creatinine Clearance (Chem N/A [facility] Nucleated erythrocytes [Pres ence] in Blood by Automated countOrdered By: Amanda Hannon on 01-18-2023 Nucleated RBC Auto Ql (Bld) 0.2 /100{WBC} 0-0.5 [facility] Platelet mean volume Auto (B ld) [Entitic vol]Ordered By: Amanda Hannon on 01-18-2023 Platelet mean volume (Bld) [Entitic vol] 8.7 fL 6.3-10.7 [facility] Platelets Auto (Bld) [#/Vol] Ordered By: Amanda Hannon on 01-18-2023 Platelets (Bld) [#/Vol] 136 10*3/uL 150-450 [facility] Protein Auto test strip (U) [Mass/Vol]Ordered By: Amanda Hannon on 01-18-2023 Protein (U) [Mass/Vol] Negative Negative [facility] RBC Auto (Bld) [#/Vol]Ordere d By: Amanda Hannon on 01-18-2023 RBC (Bld) [#/Vol] 4.21 10*6/uL 3.60-5.00 [facility] Specific gravity Auto test s trip (U) [Rel density]Ordered By: Amanda Hannon on 01-18-2023 Specific gravity (U) [Rel density] 1.016 1.001-1.030 [facility] Squamous epithelial cells de tection in urine sediment by light microscopyOrdered By: Amanda Hannon on 01-18-2023 Epithelial cells.squamous LM Ql (Urine sed) 1-2 [HPF] 0-2 [facility] Urine Cultureon 01-18-2023 Bacteria identified Cx Nom (U) No Growth 2 Days PERFORMED BY: [facility] [address] [place] [address] PATHOLOGIST [employer] TELEVISION ANNOUNCER CHRISTOPHE GRIJALVA M.D. Normal [facility] Comment on above: Performed By: #### C RP, CREAT, ESR, CBC, TSH3 #### [facility] [address] Urine bacteria detection by automated methodOrdered By: Amanda Hannon on 01-18-2023 Bacteria Auto Ql (U) None seen None Seen [facility] Urine clarity by refractomet ry automatedOrdered By: Amanda Hannon on 01-18-2023 Clarity Refractometry automated (U) Clear Clear [facility] Urine glucose measurement by automated test strip (mass/volume)Ordered By: Amanda Hannon on 01-18-2023 Glucose Auto test strip (U) [Mass/Vol] Normal mg/dL Normal [facility] Urine hemoglobin detection b y automated test stripOrdered By: Amanda Hannon on 01-18-2023 Hemoglobin Auto test strip Ql (U) Negative Negative [facility] Urine leukocyte esterase det ection by automated test stripOrdered By: Amanda Hannon on 01-18-2023 Leukocyte esterase Auto test strip Ql (U) 2+ Negative [facility] Urobilinogen Auto test strip (U) [Mass/Vol]Ordered By: Amanda Hannon on 01-18-2023 Urobilinogen (U) [Mass/Vol] Normal mg/dL Normal [facility] WBC Auto (Bld) [#/Vol]Ordere d By: Amanda Hannon on 01-18-2023 WBC (Bld) [#/Vol] 5.6 10*3/uL 3.8-11.6 [facility] pH Auto test strip (U)Ordere d By: Amanda Hannon on 01-18-2023 pH (U) 5.0 [pH] 5.0-9.0 [facility] Cryoglobulin with Quant Refl exon 11-19-2022 Cryoglobulin, Ql, Serum Normal None detected [facility] Comment on above: Order Comment: PT FA STED 12 HOURS Result Comment: None Detected at 72 hours This test was developed and its performance characteristics determined by [facility]. It has not been cleared or approved by the Food and Drug Administration. Performed at: [address] [id number] Manager Animation: Franky Adler PhD, Phone: [phone] PERFORMED BY: [place] [address] PATHOLOGIST RADIO TELEVISION ANNOUNCER CHRISTOPHE GRIJALVA M.D. Performed By: #### C RYOGLOB #### [facility] , Serum cryoglobulin detection Ordered By: Amanda Hannon on 11-19-2022 Cryoglobulin Ql (S) See comment None detected [facility] Comment on above: None Detected at 72 hoursThis test was developed and its performance characteristicsdetermined by [employer]. It has not been cleared orapproved by the Food and Drug Administration.Performed at: [facility] [id number] Director: Franky Adler PhD, Phone: [phone] Basophils Auto (Bld) [#/Vol] Ordered By: Amanda Hannon on 11-18-2022 Basophils (Bld) [#/Vol] 0.0 10*3/uL 0.0-0.2 [facility] Basophils/100 WBC Auto (Bld) Ordered By: Amanda Hannon on 11-18-2022 Basophils/100 WBC (Bld) 0.6 % . [facility] C reactive protein [Mass/vol ume] in Serum or PlasmaOrdered By: Amanda Hannon on 11-18-2022 CRP [Mass/Vol] 0.9 mg/dL 0.0-1.0 [facility] C-Reactive Proteinon 023 C-Reactive Protein 0.9 mg/dL Normal 0.0-1.0 [facility] Comment on above: Performed By: #### C RP, CREAT, ESR, CBC, TSH3 #### [address] Complete Blood Count Auto Di ffon 11-18-2022 Basophils (Bld) [#/Vol] 0.0 10*3/uL Normal 0.0-0.2 [facility] Comment on above: Performed By: #### C RP, CREAT, ESR, CBC, TSH3 #### [address] Basophils/100 WBC (Bld) 0.6 % Normal . [facility] Comment on above: Performed By: #### C RP, CREAT, ESR, CBC, TSH3 #### [address] Eosinophils (Bld) [#/Vol] 0.1 10*3/uL Normal 0.0-0.45 [facility] Comment on above: Performed By: #### C RP, CREAT, ESR, CBC, TSH3 #### [address] Eosinophils/100 WBC (Bld) 0.8 % Normal . [facility] Comment on above: Performed By: #### C RP, CREAT, ESR, CBC, TSH3 #### [address] Erythrocyte distribution width (RBC) [Ratio] 12.2 % Normal 11.9-15.3 [facility] Comment on above: Performed By: #### C RP, CREAT, ESR, CBC, TSH3 #### [address] Hematocrit (Bld) [Volume fraction] 40.2 % Normal 34.0-46.4 [facility] Comment on above: Performed By: #### C RP, CREAT, ESR, CBC, TSH3 #### [address] Hemoglobin (Bld) [Mass/Vol] 14.0 g/dL Normal 11.8-15.4 [facility] Comment on above: Performed By: #### C RP, CREAT, ESR, CBC, TSH3 #### [address] Lymphocytes (Bld) [#/Vol] 1.3 10*3/uL Normal 1.00-4.8 [facility] Comment on above: Performed By: #### C RP, CREAT, ESR, CBC, TSH3 #### [address] Lymphocytes/100 WBC (Bld) 19.8 % Normal . [facility] Comment on above: Performed By: #### C RP, CREAT, ESR, CBC, TSH3 #### [address] MCH (RBC) [Entitic mass] 31.8 pg Normal 24.7-34.3 [facility] Comment on above: Performed By: #### C RP, CREAT, ESR, CBC, TSH3 #### [address] MCV (RBC) [Entitic vol] 91.5 fL Normal 80-100 [facility] Comment on above: Performed By: #### C RP, CREAT, ESR, CBC, TSH3 #### [address] Mean Corpuscular HGB Conc 34.8 g/dL Normal 32.0-35.0 [facility] Comment on above: Performed By: #### C RP, CREAT, ESR, CBC, TSH3 #### [address] Monocytes (Bld) [#/Vol] 0.6 10*3/uL Normal 0.0-0.8 [facility] Comment on above: Performed By: #### C RP, CREAT, ESR, CBC, TSH3 #### [address] Monocytes/100 WBC (Bld) 8.9 % Normal . [facility] Comment on above: Performed By: #### C RP, CREAT, ESR, CBC, TSH3 #### [address] Neutrophils (Bld) [#/Vol] 4.4 10*3/uL Normal 1.8-7.7 [facility] Comment on above: Performed By: #### C RP, CREAT, ESR, CBC, TSH3 #### [address] Neutrophils/100 WBC (Bld) 69.9 % Normal . [facility] Comment on above: Performed By: #### C RP, CREAT, ESR, CBC, TSH3 #### [address] NRBC% 0.1 /100{WBC} Normal 0-0.5 [facility] Comment on above: Performed By: #### C RP, CREAT, ESR, CBC, TSH3 #### [address] Platelet mean volume (Bld) [Entitic vol] 8.3 fL Normal 6.3-10.7 [facility] Comment on above: Performed By: #### C RP, CREAT, ESR, CBC, TSH3 #### [address] Platelets (Bld) [#/Vol] 140 10*3/uL Low 150-450 [facility] Comment on above: Performed By: #### C RP, CREAT, ESR, CBC, TSH3 #### [address] RBC (Bld) [#/Vol] 4.39 10*6/uL Normal 3.60-5.00 [facility] Comment on above: Performed By: #### C RP, CREAT, ESR, CBC, TSH3 #### [address] WBC (Bld) [#/Vol] 6.3 10*3/uL Normal 3.8-11.6 [facility] Comment on above: Performed By: #### C RP, CREAT, ESR, CBC, TSH3 #### [address] Creatinineon 11-18-2022 Creatinine [Mass/Vol] 0.65 mg/dL Normal 0.44-1.03 [facility] Comment on above: Performed By: #### C RP, CREAT, ESR, CBC, TSH3 #### [facility] [address] Estimated GFR ( [place] > 60 Normal [facility] Comment on above: Result Comment: GFR estimated reference range: According to KDOQI guidelines, <60 ml/min/1.73m2 is sufficient to diagnose a patient with chronic kidney disease. Performed By: #### C RP, CREAT, ESR, CBC, TSH3 #### [facility] [address] Estimated GFR (Non- Am > 60 Normal [facility] Comment on above: Performed By: #### C RP, CREAT, ESR, CBC, TSH3 #### [address] Creatinine and Glomerular fi ltration rate.predicted panel (S/P/Bld)Ordered By: Amanda Hannon on 11-18-2022 Creatinine [Mass/Vol] 0.65 mg/dL 0.44-1.03 [facility] Eosinophils Auto (Bld) [#/Vo l]Ordered By: Amanda Hannon on 11-18-2022 Eosinophils (Bld) [#/Vol] 0.1 10*3/uL 0.0-0.45 [facility] Eosinophils/100 WBC Auto (Bl d)Ordered By: Amanda Hannon on 11-18-2022 Eosinophils/100 WBC (Bld) 0.8 % . [facility] Erythrocyte Sedimentation Ra malachi 11-18-2022 ESR (Bld) [Velocity] 4 mm/h Normal 0-29 [facility] Comment on above: Result Comment: PERF ORMED BY: [place] [address] PATHOLOGIST [employer] TELEVISION ANNOUNCER CHRISTOPHE GRIJALVA M.D. Performed By: #### C RP, CREAT, ESR, CBC, TSH3 #### [address] Erythrocyte distribution wid th Auto (RBC) [Ratio]Ordered By: Amanda Hannon on 11-18-2022 Erythrocyte distribution width (RBC) [Ratio] 12.2 % 11.9-15.3 [facility] Erythrocyte sedimentation ra te by Photometric methodOrdered By: Amanda Hannon on 11-18-2022 ESR Photometric method (Bld) [Velocity] 4 mm/hr 0-29 [facility] Estimated glomerular filtrat ion rate (GFR) non- AmericanOrdered By: Amanda Hannon on 11-18-2022 GFR/1.73 sq M.predicted among non-blacks MDRD (S/P/Bld) [Vol rate/Area] > 60 mL/Min [facility] Hematocrit Auto (Bld) [Volum e fraction]Ordered By: Amanda Hannon on 11-18-2022 Hematocrit (Bld) [Volume fraction] 40.2 % 34.0-46.4 [facility] Hemoglobin [Mass/volume] in BloodOrdered By: Amanda Hannon on 11-18-2022 Hemoglobin (Bld) [Mass/Vol] 14.0 g/dL 11.8-15.4 [facility] IgA [Mass/volume] in Serum o r PlasmaOrdered By: Amanda Hannon on 11-18-2022 IgA [Mass/Vol] 95 mg/dL 64-422 [facility] IgE [Units/volume] in Serum or PlasmaOrdered By: Amanda Hannon on 11-18-2022 IgE Qn 28 [IU]/mL 6-495 [facility] Comment on above: Performed at: - [address] [id number] Director: Krysta Child MD, Phone: [phone] IgG [Mass/volume] in Serum o r PlasmaOrdered By: Amanda Hannon on 11-18-2022 IgG [Mass/Vol] 658 mg/dL [phone] [facility] IgG subclass 1 measurementOr dered By: Amanda Hannon on 11-18-2022 IgG subclass 1 (S) [Mass/Vol] 265 mg/dL 248-810 [facility] IgG subclass 2 measurementOr dered By: Amanda Hannon on 11-18-2022 IgG subclass 2 (S) [Mass/Vol] 236 mg/dL 130-555 [facility] IgG subclass 3 measurementOr dered By: Amanda Hannon on 11-18-2022 IgG subclass 3 (S) [Mass/Vol] 33 mg/dL 15-102 [facility] IgM [Mass/volume] in Serum o r PlasmaOrdered By: Amanda Hannon on 11-18-2022 IgM [Mass/Vol] 444 mg/dL [facility] Comment on above: Performed at: - [facility] [id number] Director: Franky Adler PhD, Phone: [phone] Immunoglobulin A, Serumon Immunoglobulin A, Serum 95 mg/dL Normal 64-422 [facility] Comment on above: Performed By: #### I GE, IGM, IGA #### [facility] , Immunoglobulin Guevara Immunoglobulin E 28 Normal 6-495 [facility] Comment on above: Result Comment: Perf ormed at: - [facility] [id number] Manager Animation: Krysta Child MD, Phone: [phone] PERFORMED BY: [facility] [address] [place] [address] PATHOLOGIST RADIO TELEVISION ANNOUNCER CHRISTOPHE GRIJALVA M.D. Performed By: #### I GE, IGM, IGA #### [facility] , Immunoglobulin M, Serumon Immunoglobulin M, Serum 444 mg/dL High [facility] Comment on above: Result Comment: Perf ormed at: - [facility] [place] [address] [place], [place] [id number] Manager Animation: Franky Adler PhD, Phone: [phone] Performed By: #### I GE, IGM, IGA #### [facility] , Leukocytes [#/volume] correc haider for nucleated erythrocytes in Blood by Automated counOrdered By: Amanda Hannon on 11-18-2022 WBC corrected for nucl RBC Auto (Bld) [#/Vol] 6.3 10*3/uL 3.8-11.6 [facility] Lymphocytes Auto (Bld) [#/Vo l]Ordered By: Amanda Hannon on 11-18-2022 Lymphocytes (Bld) [#/Vol] 1.3 10*3/uL 1.00-4.8 [facility] Lymphocytes/100 WBC Auto (Bl d)Ordered By: Amanda Hannon on 11-18-2022 Lymphocytes/100 WBC (Bld) 19.8 % . [facility] MCH Auto (RBC) [Entitic mass ]Ordered By: Amanda Hannon on 11-18-2022 MCH (RBC) [Entitic mass] 31.8 pg 24.7-34.3 [facility] MCHC Auto (RBC) [Mass/Vol]Or dered By: Amanda Hannon on 11-18-2022 MCHC (RBC) [Mass/Vol] 34.8 g/dL 32.0-35.0 [facility] MCV Auto (RBC) [Entitic vol] Ordered By: Amanda Hannon on 11-18-2022 MCV (RBC) [Entitic vol] 91.5 fL 80-100 [facility] Monocytes Auto (Bld) [#/Vol] Ordered By: Amanda Hannon on 11-18-2022 Monocytes (Bld) [#/Vol] 0.6 10*3/uL 0.0-0.8 [facility] Monocytes/100 WBC Auto (Bld) Ordered By: Amanda Hannon on 11-18-2022 Monocytes/100 WBC (Bld) 8.9 % . [facility] Neutrophils Auto (Bld) [#/Vo l]Ordered By: Amanda Hannon on 11-18-2022 Neutrophils (Bld) [#/Vol] 4.4 10*3/uL 1.8-7.7 [facility] Neutrophils/100 WBC Auto (Bl d)Ordered By: Amanda Hannon on 11-18-2022 Neutrophils/100 WBC (Bld) 69.9 % . [facility] No Panel InformationOrdered By: Amanda Hannon on 11-18-2022 Immunoglobulin G4 43 mg/dL 2-96 [facility] Comment on above: Performed at: [address] [id number] Director: Franky Adler PhD, Phone: [phone] Estimated GFR () > 60 mL/Min [facility] Comment on above: GFR estimated refere nce range: According to KDOQI guidelines, <60 ml/min/1.73m2 is sufficient to diagnose a patient with chronic kidney disease. Pharmacy Creatinine Clearance (Chem N/A [facility] Nucleated erythrocytes [Pres ence] in Blood by Automated countOrdered By: Amanda Hannon on 11-18-2022 Nucleated RBC Auto Ql (Bld) 0.1 /100{WBC} 0-0.5 [facility] Platelet mean volume Auto (B ld) [Entitic vol]Ordered By: Amanda Hannon on 11-18-2022 Platelet mean volume (Bld) [Entitic vol] 8.3 fL 6.3-10.7 [facility] Platelets Auto (Bld) [#/Vol] Ordered By: Amanda Hannon on 11-18-2022 Platelets (Bld) [#/Vol] 140 10*3/uL 150-450 [facility] RBC Auto (Bld) [#/Vol]Ordere d By: Amanda Hannon on 11-18-2022 RBC (Bld) [#/Vol] 4.39 10*6/uL 3.60-5.00 [facility] TSH DL <= 0.005 mIU/L QnOrde red By: Amanda Hannon on 11-18-2022 TSH Qn 2.75 m[IU]/L 0.45-5.33 [facility] Thyroid Stimulating Hormoneo n 11-18-2022 TSH Qn 2.75 m[IU]/L Normal 0.45-5.33 [facility] Comment on above: Result Comment: PERF ORMED BY: [facility] [address] [place] [address] PATHOLOGIST RADIO TELEVISION ANNOUNCER CHRISTOPHE GRIJALVA M.D. Performed By: #### C RP, CREAT, ESR, CBC, TSH3 #### [facility] [address] WBC Auto (Bld) [#/Vol]Ordere d By: Amanda Hannon on 11-18-2022 WBC (Bld) [#/Vol] 6.3 10*3/uL 3.8-11.6 [facility] C3 and C4 COMPLEMENTon 11-17 Complement C3, Serum 69 mg/dL Critically low 82-167 [facility] Comment on above: Performed By: #### C SUITE #### [facility] [address] [place] [address] Dr. Titus Looney Complement C4, Serum <2 Critically low 12-38 [facility] Comment on above: Performed By: #### C SUITE #### [facility] [address] [place] [address] Dr. Titus Looney HAPTOGLOBINon 11-17-2022 Haptoglobin 64 mg/dL Normal 42-346 [facility] Comment on above: Performed By: #### H APTOGL #### [facility] [address] [place] [address] Dr. Titus Looney CBC AUTO DIFFon 11-16-2022 BASO # 0.0 103/ul Normal 0.0-0.1 [facility] Comment on above: Performed By: #### C BC #### [facility] [address] [place] [address] Dr. Titus Looney Basophils/100 WBC (Bld) 0.5 % Normal 0.2-2.0 [facility] Comment on above: Performed By: #### C BC #### [facility] [address] [place] [address] Dr. Titus Looney EO # 0.1 103/ul Normal 0.0-0.7 [facility] Comment on above: Performed By: #### C BC #### [facility] [address] [place] [address] Dr. Titus Looney Eosinophils/100 WBC (Bld) 1.2 % Normal 0.9-7.0 [facility] Comment on above: Performed By: #### C BC #### [facility] [address] [place] [address] Dr. Titus Looney Erythrocyte distribution width (RBC) [Ratio] 11.9 % Normal 11.0-15.0 [facility] Comment on above: Performed By: #### C BC #### [facility] [address] [place] [address] Dr. Titus Looney Hematocrit (Bld) [Volume fraction] 40.3 % Normal 36.0-48.0 [facility] Comment on above: Performed By: #### C BC #### [facility] [address] [place] [address] Dr. Titus Looney Hemoglobin (Bld) [Mass/Vol] 14.4 g/dL Normal 12.0-16.0 [facility] Comment on above: Performed By: #### C BC #### [facility] [address] [place] [address] Dr. Titus Looney IG # 0.02 10e3/ul Normal 0.00-0.03 [facility] Comment on above: Performed By: #### C BC #### [facility] [address] [place] [address] Dr. Titus Looney IG % 0.3 % Normal 0.0-0.5 [facility] Comment on above: Performed By: #### C BC #### [facility] [address] [place] [address] Dr. Titus Looney LYMPH # 1.1 103/ul Critically low 1.2-3.8 [facility] Comment on above: Performed By: #### C BC #### [facility] [address] [place] [address] Dr. Titus Looney Lymphocytes/100 WBC (Bld) 18.8 % Critically low 20.5-60.0 [facility] Comment on above: Performed By: #### C BC #### [facility] [address] [place] [address] Dr. Titus Looney MANUAL DIFF REQ NO Normal [facility] Comment on above: Performed By: #### C BC #### [facility] [address] [place] [address] Dr. Titus Looney MCH (RBC) [Entitic mass] 31.5 pg Normal 26.7-34.0 [facility] Comment on above: Performed By: #### C BC #### [facility] [address] [address] [address] Titus Looney MCHC (RBC) [Mass/Vol] 35.7 g/dL Critically high 29.9-35.2 [facility] Comment on above: Performed By: #### C BC #### [facility] [address] [place] [address] Dr. Titus Looney MCV (RBC) [Entitic vol] 88.2 fL Normal 81.0-99.0 [facility] Comment on above: Performed By: #### C BC #### [facility] [address] [place] [address] Dr. Titus Looney MONO # 0.5 103/ul Normal 0.3-0.8 [facility] Comment on above: Performed By: #### C BC #### [facility] [address] [place] [address] Dr. Titus Looney Monocytes/100 WBC (Bld) 8.2 % Normal 1.7-12.0 [facility] Comment on above: Performed By: #### C BC #### [facility] [address] [place] [address] Dr. Titus Looney NEUT # 4.3 103/ul Normal 1.4-6.5 [facility] Comment on above: Performed By: #### C BC #### [facility] [address] [place] [address] Dr. Titus Looney Neutrophils/100 WBC (Bld) 71.0 % Normal 43.0-75.0 [facility] Comment on above: Performed By: #### C BC #### [facility] [address] [place] [address] Dr. Titus Looney Platelet mean volume (Bld) [Entitic vol] 10.8 fL Normal 9.5-13.5 [facility] Comment on above: Performed By: #### C BC #### [facility] [address] [place] [address] Dr. Titus Looney PLT 109 103/ul Critically low 150-450 [facility] Comment on above: Performed By: #### C BC #### [facility] [address] [place] [address] Dr. Titus Looney RBC 4.57 106/ul Normal 4.20-5.40 [facility] Comment on above: Performed By: #### C BC #### [facility] [address] [place] [address] Dr. Titus Looney WBC 6.0 103/ul Normal 4.0-11.0 [facility] Comment on above: Performed By: #### C BC #### [facility] [address] [place] [address] Dr. Titus Looney CREATININEon 11-16-2022 Creatinine [Mass/Vol] 0.70 mg/dL Normal 0.55-1.02 [facility] Comment on above: Performed By: #### C BECKY, CRP, LDH #### [facility] [address] [place] [address] Dr. Titus Looney EGFR-AF SCOTTISH >60 Normal >=60 [facility] Comment on above: Performed By: #### C BECKY, CRP, LDH #### [facility] [address] [place] [address] Dr. Titus Looney EGFR-NON AF SCOTTISH >60 Normal >=60 [facility] Comment on above: Performed By: #### C BECKY, CRP, LDH #### [facility] [address] [place] [address] Dr. Titus Looney CRPon 11-16-2022 CRP [Mass/Vol] mg/L Normal <=1.0 [facility] Comment on above: Performed By: #### C BECKY, CRP, LDH #### [facility] [address] [place] [address] Dr. Titus Looney LDHon 11-16-2022 LDH 177 U/L Normal 81-234 [facility] Comment on above: Performed By: #### C BECKY, CRP, LDH #### [facility] [address] [place] [address] Dr. Titus Looney SED RATE WESTERGRENon 2022 SED RATE 5 mm/hr Normal <=30 [facility] Comment on above: Performed By: #### S EDR #### [facility] [address] [place] [address] Dr. Titus Looney UA RANDOM W/MICROSCOPICon BACTERIA NONE SEEN Normal NONE SEEN [facility] Comment on above: Performed By: #### U AMIC #### [facility] [address] [place] [address] Dr. Titus Looney Bilirubin Ql (U) Negative Normal NEGATIVE [facility] Comment on above: Performed By: #### U AMIC #### [facility] [address] [address] [address] Titus Looney CAST NONE SEEN Normal NONE SEEN [facility] Comment on above: Performed By: #### U AMIC #### [facility] [address] [place] [address] Dr. Titus Looney Clarity (U) CLEAR Normal CLEAR [facility] Comment on above: Performed By: #### U AMIC #### [facility] [address] [place] [address] Dr. Titus Looney Color (U) LT. YELLOW Normal YELLOW [facility] Comment on above: Performed By: #### U AMIC #### [facility] [address] [place] [address] Dr. Titus Looney Crystals LM Nom (Urine sed) NONE SEEN Normal NONE SEEN [facility] Comment on above: Performed By: #### U AMIC #### [facility] [address] [place] [address] Dr. Titus Looney Epithelial cells LM Ql (Urine sed) NONE SEEN Normal NONE SEEN /RARE [facility] Comment on above: Performed By: #### U AMIC #### [facility] [address] [place] [address] Dr. Titus Looney Glucose Ql (U) Negative Normal NEGATIVE [facility] Comment on above: Performed By: #### U AMIC #### [facility] [address] [place] [address] Dr. Titus Looney Hemoglobin Ql (U) Negative Normal NEGATIVE [facility] Comment on above: Performed By: #### U AMIC #### [facility] [address] [place] [address] Dr. Titus Looney Ketones Ql (U) Negative Normal NEGATIVE [facility] Comment on above: Performed By: #### U AMIC #### [facility] [address] [place] [address] Dr. Titus Looney LEUKOCYTES TRACE Abnormal NEGATIVE [facility] Comment on above: Performed By: #### U AMIC #### [facility] [address] [place] [address] Dr. Titus Looney MUCOUS NONE SEEN Normal NONE SEEN [facility] Comment on above: Performed By: #### U AMIC #### [facility] [address] [place] [address] Dr. Titus Looney Nitrite Ql (U) Negative Normal NEGATIVE [facility] Comment on above: Performed By: #### U AMIC #### [facility] [address] [place] [address] Dr. Titus Looney pH (U) 6.0 [pH] Normal 5-9 [facility] Comment on above: Performed By: #### U AMIC #### [facility] [address] [place] [address] Dr. Titus Looney RBC 0-2 Normal 0-2 [facility] Comment on above: Performed By: #### U AMIC #### [facility] [address] [place] [address] Dr. Titus Looney SPEC GRAVITY 1.020 Normal 1.005-<=1.02 5 [facility] Comment on above: Performed By: #### U AMIC #### [facility] [address] [place] [address] Dr. Titus Looney UA PROTEIN Negative Normal NEGATIVE/ TRACE [facility] Comment on above: Performed By: #### U AMIC #### [facility] [address] [place] [address] Dr. Titus Looney Urobilinogen Qn (U) 0.2 {Juan'U}/dL Normal 0.2 - 1. 0 [facility] Comment on above: Performed By: #### U AMIC #### [facility] [address] [address] [address] Titus Looney WBC NONE SEEN Normal NONE SEEN [facility] Comment on above: Performed By: #### U AMIC #### [facility] [address] [place] [address] Dr. Titus Looney Body fluid albumin measureme nt (mass/volume)Ordered By: Amanda Hannon on 04-14-2022 Albumin (Body fld) [Mass/Vol] 3.7 g/dL 3.2-5.5 [facility] Creatinine and Glomerular fi ltration rate.predicted panel (S/P/Bld)Ordered By: Amanda Hannon on 04-14-2022 Creatinine [Mass/Vol] 0.75 mg/dL 0.44-1.03 [facility] Erythrocyte sedimentation ra te by Photometric methodOrdered By: Amanda Hannon on 04-14-2022 ESR Photometric method (Bld) [Velocity] 2 mm/hr 0-29 [facility] Estimated glomerular filtrat ion rate (GFR) non- AmericanOrdered By: Amanda Hannon on 04-14-2022 GFR/1.73 sq M.predicted among non-blacks MDRD (S/P/Bld) [Vol rate/Area] > 60 mL/Min [facility] Globulin Calc (S) [Mass/Vol] Ordered By: Amanda Hannon on 04-14-2022 Globulin (S) [Mass/Vol] 2.2 g/dL [facility] No Panel InformationOrdered By: Amanda Hannon on 04-14-2022 Estimated GFR () > 60 mL/Min [facility] Comment on above: GFR estimated refere nce range: According to KDOQI guidelines, <60 ml/min/1.73m2 is sufficient to diagnose a patient with chronic kidney disease. Pharmacy Creatinine Clearance (Chem N/A [facility] Protein [Mass/volume] in Ser um or PlasmaOrdered By: Amanda Hannon on 04-14-2022 Protein [Mass/Vol] 5.9 g/dL 6.1-7.9 [facility] Serum or plasma C reactive p rotein measurement (mass/volume)Ordered By: Amanda Hannon on 04-14-2022 CRP [Mass/Vol] 1.2 mg/dL 0.0-1.0 [facility] Serum or plasma alanine sands otransferase measurement without P-5'-P (enzymatic activiOrdered By: Amanda Hannon on 04-14-2022 ALT No additional P-5'-P [Catalytic activity/Vol] 12 U/L 10-60 [facility] Serum or plasma albumin/glob ulin mass ratioOrdered By: Amanda Hannon on 04-14-2022 Albumin/Globulin [Mass ratio] 1.7 {ratio} [facility] Serum or plasma alkaline hyun sphatase measurement (enzymatic activity/volume)Ordered By: Amanda Hannon on 04-14-2022 ALP [Catalytic activity/Vol] 63 U/L 32-92 [facility] Serum or plasma aspartate am inotransferase measurement (enzymatic activity/volume)Ordered By: Amanda Hannon on 04-14-2022 AST [Catalytic activity/Vol] 21 U/L 10-42 [facility] Serum or plasma calcium saleem urement (mass/volume)Ordered By: Amanda Hannon on 04-14-2022 Calcium [Mass/Vol] 9.4 mg/dL 8.2-10.2 [facility] Serum or plasma chloride dasha surement (moles/volume)Ordered By: Amanda Hannon on 04-14-2022 Chloride [Moles/Vol] 99 mmol/L 95-114 [facility] Serum or plasma glucose saleem urement (mass/volume)Ordered By: Amanda Hannon on 04-14-2022 Glucose [Mass/Vol] 84 mg/dL 70-100 [facility] Comment on above: ADA recommended refe rence range Random Glucose Reference Range is dependent on time and content of last meal. Glucose of more than 200 mg/dL in a nonstressed, ambulatory subject supports the diagnosis of Diabetes Mellitus. Serum or plasma potassium me asurement (moles/volume)Ordered By: Amanda Hannon on 04-14-2022 Potassium [Moles/Vol] 4.1 mmol/L 3.5-5.1 [facility] Serum or plasma sodium measu rement (moles/volume)Ordered By: Amanda Hannon on 04-14-2022 Sodium [Moles/Vol] 138 mmol/L 136-146 [facility] Serum or plasma total biliru bin measurement (mass/volume)Ordered By: Amanda Hannon on 04-14-2022 Bilirubin [Mass/Vol] 0.4 mg/dL 0.3-1.2 [facility] Serum or plasma total carbon dioxide measurement (moles/volume)Ordered By: Amanda Hannon on 04-14-2022 CO2 [Moles/Vol] 27.7 mmol/L 22.0-30.0 [facility] Serum or plasma urea nitroge n measurement (mass/volume)Ordered By: Amanda Hannon on 04-14-2022 Urea nitrogen [Mass/Vol] 13 mg/dL 9- [facility] Vital Signs Date Time Vital Sign Value Performing Clinician Law randall 12-23-2023 10:48-0400 Body height 144.8 cm Sherry Sinclair APRNGeoTrac Work Phone: [facility] 12-23-2023 10:48-0400 Body mass index (BMI) [Ratio] 22.28 kg/m2 Sherry Sinclair QUALITY LEAD-CIRCULATION CLERK Work Phone: [facility] 12-23-2023 10:48-0400 Body temperature 98.4 [degF] Sherry Sinclair APRN-CIRCULATION CLERK Work Phone: [facility] 12-23-2023 10:48-0400 Body weight 46.72 kg Sherry Sinclair QUALITY LEAD-CIRCULATION CLERK Work Phone: [facility] 12-23-2023 10:48-0400 Diastolic blood pressure 72 mm[Hg] Sherry Sinclair QUALITY LEAD-CIRCULATION CLERK Work Phone: [facility] 12-23-2023 10:48-0400 Heart rate 76 /min Sherry Sinclair APRN-CIRCULATION CLERK Work Phone: [facility] 12-23-2023 10:48-0400 SaO2% (BldA) [Mass fraction] 97 % Sherry Sinclair QUALITY LEAD-CIRCULATION CLERK Work Phone: [facility] 12-23-2023 10:48-5010 Systolic blood pressure 118 mm[Hg] Sherry Sinclair QUALITY LEAD-CIRCULATION CLERK Work Phone: [facility] Encounters Encounter Date Encounter Type Care Provider Facility Start: 05-09-2024 End: 05-09-2024 ambulatory ALBERTO CROCKETT Not Available Start: 03-08-[address] [facility] Start: 02-22-2024 ambulatory [facility] Start: 01-27-2024 End: 01-27-[address] [facility] Start: 01-17-2024 End: 01-17-2024 ambulatory ALEJANDRA E RAMBASEK Not Available Start: 01-07-2024 End: 01-07-2024 ambulatory ALEJANDRA E RAMBASEK Not Available Start: 12-29-2023 End: 12-29-2023 ambulatory ALEJANDRA E RAMBASEK Not Available Start: 12-23-2023 End: 12-23-2023 Office outpatient visit 10 minutes Sherry Hunterjas QUALITY LEAD-CIRCULATION CLERK Work Phone: [facility] Comment on above: Throat irritation (P rimary Dx) Start: 12-23-2023 End: 12-23-2023 ambulatory [facility] Start: 11-24-2023 End: 11-24-2023 ambulatory ALEJANDRA E RAMBASEK Not Available Start: 10-27-2023 End: 10-27-2023 ambulatory ALEJANDRA E RAMBASEK Not Available Start: 10-13-2023 End: 10-13-2023 ambulatory ALEJANDRA E RAMBASEK Not Available Start: 06-03-2023 End: 06-03-2023 ambulatory Amanda Hannon Facility:[facility] Start: 06-03-2023 End: 06-03-2023 ambulatory CORRESPONDENCE TRANSCRIBER- Bella Tsai Work Phone: [facility] Work Phone: Start: 06-03-2023 End: 06-03-2023 Patient encounter procedure CORRESPONDENCE TRANSCRIBER-BC Bella Gina Work Phone: [facility] [address] Work Phone: Start: 03-16-2023 End: 03-16-2023 ambulatory BELLA A GINA Facility:[facility] Start: 02-16-2023 End: 02-16-2023 ambulatory Amanda Haladay Facility:[facility] Start: 01-18-2023 End: 01-18-2023 ambulatory Amanda Sawyeraday Facility:[facility] Start: 01-18-2023 End: 01-18-2023 ambulatory CORRESPONDENCE TRANSCRIBER-BC Bella A Gina Work Phone: [facility] Work Phone: Start: 01-18-2023 End: 01-18-2023 Patient encounter procedure CORRESPONDENCE TRANSCRIBER-BC Bella Gina Work Phone: [facility] [address] Work Phone: Start: 11-19-2022 End: 11-19-2022 ambulatory Bella A Gina Facility:[facility] Start: 11-19-2022 End: 11-19-2022 ambulatory CORRESPONDENCE TRANSCRIBER-BC Bella A Gina Work Phone: [facility] Work Phone: Start: 11-19-2022 End: 11-19-2022 Patient encounter procedure CORRESPONDENCE TRANSCRIBER-BC Bella Gina Work Phone: [facility] [address] Work Phone: Start: 11-18-2022 End: 11-18-2022 ambulatory Amanda Sawyeraday Facility:[facility] Start: 11-18-2022 End: 11-18-2022 ambulatory CORRESPONDENCE TRANSCRIBER-BC Bella A Gina Work Phone: [facility] Work Phone: Start: 11-18-2022 End: 11-18-2022 Patient encounter procedure CORRESPONDENCE TRANSCRIBER-BC Bella Gina Work Phone: [facility] [address] Work Phone: Start: 11-16-2022 End: 11-17-[address] AMANDA HANNON Facility:[facility] Start: 04-14-2022 End: 04-14-2022 Patient encounter procedure CORRESPONDENCE TRANSCRIBER-BC Bella Tsai Work Phone: [facility] [address] Procedures Date Procedure Procedure Detail Performing Clinician Start: 08-31-2023 Adult depression screening assessment Sherry Sinclair QUALITY LEAD-CIRCULATION CLERK Work Phone: Plan of Treatment Date Care Activity Detail Author Start: 05-23-2032 DTaP,Tdap and Td Vaccines (2 - Td or Tdap) DTaP,Tdap and Td Vaccines (2 - Td or Tdap) [facility] Start: 12-22-2024 Adult BMI Screening Adult BMI Screening [facility] Start: 12-22-2024 Tobacco Screening Tobacco Screening [facility] Start: 09-11-2024 End: 09-11-2024 Patient encounter procedure 09/11/2024 10:00 AM EST Office Visit [facility] [address] [place] [id number] Mary Emery MD [address] [place], [place] [id number] [facility] Start: 09-02-2024 Medicare Annual Wellness Visit Medicare Annual Wellness Visit [facility] Start: 08-31-2024 Depression Screening Depression Screening [facility] Start: 08-31-2024 Fall Risk Screening Fall Risk Screening [facility] Start: 01-27-2024 End: 01-27-2024 Patient encounter procedure 01/27/2024 11:30 AM EDT Office Visit [facility] [address] [place] [address] [place] [id number] Mary Emery MD [address] [facility] [place] [address] [facility] Start: 06-03-2023 Bacteria identified in Urine by Culture [facility] Start: 01-18-2023 Bacteria identified in Urine by Culture [facility] Start: 01-18-2023 Hemolytic complement CH50 level [facility] Start: 11-19-2022 [facility] Start: 11-18-2022 End: 11-18-2022 [facility] Complement C1q [Mass/volume] in Serum or Plasma [facility] Complement C3 [Mass/volume] in Serum or Plasma [facility] Complement C3 [Mass/volume] in Serum or Plasma [facility] Complement C4 [Mass/volume] in Serum or Plasma [facility] Complement C4 [Mass/volume] in Serum or Plasma [facility] Cryoglobulin [Presen ce] in Serum [facility] IgA [Mass/volume] in Serum or Plasma [facility] IgE [Units/volume] i n Serum or Plasma [facility] IgG [Mass/volume] in Serum or Plasma [facility] IgG subclass 1 [Mass/volume] in Serum [facility] IgG subclass 2 [Mass/volume] in Serum [facility] IgG subclass 3 [Mass/volume] in Serum [facility] IgM [Mass/volume] in Serum or Plasma [facility] Immunoglobulin G sub class, G4 measurement [facility] Immunizations Immunization Date Immunization Notes Care Provider [facility] 07-19-2023 Influenza Vaccine, Quadrivalent, Adjuvanted Sherry Sinclair QUALITY LEAD-CIRCULATION CLERK Work Phone: [facility] 05-21-2023 zoster vaccine recombinant Sherry Sinclair QUALITY LEAD-CIRCULATION CLERK Work Phone: [facility] 01-21-2023 zoster vaccine recombinant Sherry Sinclair QUALITY LEAD-CIRCULATION CLERK Work Phone: [facility] 07-14-2022 Influenza, High-dose , Quadrivalent Sherry Sinclair QUALITY LEAD-CIRCULATION CLERK Work Phone: [facility] 05-23-2022 tetanus toxoid, redu brandy diphtheria toxoid, and acellular pertussis vaccine, adsorbed Sherry Sinclair QUALITY LEAD-CIRCULATION CLERK Work Phone: [facility] 06-26-2021 Influenza, High-dose , Quadrivalent Sherry Sinclair QUALITY LEAD-CIRCULATION CLERK Work Phone: [facility] 06-19-2020 influenza virus vacc ine, unspecified formulation Sherry Sinclair QUALITY LEAD-CIRCULATION CLERK Work Phone: [facility] 06-19-2020 Influenza, High-dose , Quadrivalent Sherry Sinclair QUALITY LEAD-CIRCULATION CLERK Work Phone: [facility] 07-25-2019 influenza, injectabl e, quadrivalent, preservative free Sherry Sinclair QUALITY LEAD-CIRCULATION CLERK Work Phone: [facility] 07-25-2019 pneumococcal polysaccharide vaccine, 23 valent Sherry Sinclair QUALITY LEAD-CIRCULATION CLERK Work Phone: [facility] 07-05-2018 zoster vaccine recombinant Sherry Sinclair QUALITY LEAD-CIRCULATION CLERK Work Phone: [facility] 06-30-2018 influenza, high dose seasonal, preservative-free Sherry Sinclair QUALITY LEAD-CIRCULATION CLERK Work Phone: [facility] 11-09-2017 pneumococcal conjuga te vaccine, 13 valent Sherry Sinclair QUALITY LEAD-CIRCULATION CLERK Work Phone: [facility] 10-04-2017 influenza virus vacc ine, unspecified formulation Sherry Sinclair QUALITY LEAD-CIRCULATION CLERK Work Phone: [facility] 10-04-2017 pneumococcal conjuga te vaccine, 7 valent Sherry Sinclair QUALITY LEAD-CIRCULATION CLERK Work Phone: [facility] 07-10-2017 influenza virus vacc ine, unspecified formulation Sherry Sinclair QUALITY LEAD-CIRCULATION CLERK Work Phone: [facility] 07-10-2017 influenza, high dose seasonal, preservative-free Sherry Sinclair QUALITY LEAD-CIRCULATION CLERK Work Phone: [facility] 06-11-2014 influenza virus vacc ine, unspecified formulation Sherry Sinclair QUALITY LEAD-CIRCULATION CLERK Work Phone: [facility] 06-11-2014 influenza, high dose seasonal, preservative-free Sherry Sinclair QUALITY LEAD-CIRCULATION CLERK Work Phone: [facility] 08-03-2013 influenza virus vacc ine, unspecified formulation Sherry Sinclair QUALITY LEAD-CIRCULATION CLERK Work Phone: [facility] 08-03-2013 influenza, seasonal, injectable Sherry Sinclair QUALITY LEAD-CIRCULATION CLERK Work Phone: [facility] 11-20-2009 zoster vaccine, live Alexand ra Sinclair QUALITY LEAD-CIRCULATION CLERK Work Phone: [facility] 11-11-2009 influenza, live, intranasal, quadrivalent Sherry Sinclari QUALITY LEAD-CIRCULATION CLERK Work Phone: [facility] 11-11-2009 novel influenza-H1N1 -09, preservative-free, injectable Sherry Sinclair QUALITY LEAD-CIRCULATION CLERK Work Phone: [facility] 08-08-2007 influenza virus vacc ine, unspecified formulation Sherry Sinclair QUALITY LEAD-CIRCULATION CLERK Work Phone: [facility] 08-08-2007 influenza virus vacc ine, whole virus Sherry Sinclair QUALITY LEAD-CIRCULATION CLERK Work Phone: [facility] Payers Date Payer Category Payer Self-pay [id number] 2022 Private Health Insurance [id number] 2017 Unknown [employer] SUPPLE[employer] PLAN [id number] 2017-Present [phone] [address] [facility] [place] [address] [id number] .[id number] 2017 Unknown [id number] 2010 Medicare MEDICARE MEDICAR E PART A & B [id number] 2010-Present [phone] [facility] [id number] [place] [address] [id number] .2.7.3.406350.315 1959 Medicare [id number] 1959 Unknown [id number] 1945 Unknown [id number] 2.16.840.1.773025.3.579 .2.593 1945 Unknown [id number] 2.16.840.1.721962.3.579 .2.128 1945 Unknown [id number] 2.16.840.1.574569.3.579 .2.128 1945 Unknown [id number] 2.16.840.1.393122.3.579 .2.128 1945 Unknown [id number] 2.16.840.1.801912.3.579 .2.1285 1945 Unknown [id number] 2.16.840.1.680006.3.579 .2.1286 1945 Unknown [id number] 2.16.840.1.669802.3.579 .2.128 1945 Unknown [id number] 2.16.840.1.448022.3.579 .2.128 1945 Unknown [id number] 2.16.840.1.341595.3.579 .2.1285 1945 Unknown [id number] 2.16.840.1.019159.3.579 .2.1286 1945 Unknown [id number] 2.16.840.1.544112.3.579 .2.1285 1945 Unknown [id number] 2.16.840.1.414434.3.579 .2.1285 1945 Unknown [id number] 2.16.840.1.660118.3.579 .2.1285 1945 Unknown [id number] 2.16.840.1.524014.3.579 .2.1285 1945 Unknown [id number] 2.16.840.1.966207.3.579 .2.1285 1945 Unknown [id number] 2.16.840.1.457206.3.579 .2.1285 1945 Unknown [id number] 2.16.840.1.890563.3.579 .2.1285 1945 Unknown [id number] 2.16.840.1.108856.3.579 .2.1285 1945 Unknown [id number] 2.16.840.1.540232.3.579 .2.1285 1945 Unknown [id number] 2.16.840.1.168383.3.579 .2.1285 1945 Unknown [id number] 2.16.840.1.680816.3.579 .2.1285 1945 Unknown [id number] 2.16.840.1.630482.3.579 .2.1285 1945 Unknown [id number] 2.16.840.1.587136.3.579 .2.1285 1945 Unknown [id number] 2.16.840.1.880113.3.579 .2.1285 1945 Unknown [id number] 2.16.840.1.862480.3.579 .2.1285 1945 Unknown [id number] 2.16.840.1.053214.3.579 .2.1286 1945 Unknown [id number] 2.16.840.1.026995.3.579 .2.1285 1945 Unknown [id number] 2.16.840.1.390665.3.579 .2.1285 1945 Unknown [id number] 2.16.840.1.495078.3.579 .2.1285 1945 Unknown [id number] 2.16.840.1.888588.3.579 .2.1285 1945 Unknown [id number] 2.16.840.1.030451.3.579 .2.1285 1945 Unknown [id number] 2.16.840.1.949291.3.579 .2.1285 1945 Unknown [id number] 2.16.840.1.278453.3.579 .2.1285 1945 Unknown [id number] 2.16.840.1.970303.3.579 .2.1285 1945 Unknown [id number] 2.16.840.1.265077.3.579 .2.1285 1945 Unknown [id number] 2.16.840.1.226996.3.579 .2.1285 1945 Unknown [id number] 2.16.840.1.696613.3.579 .2.1285 1945 Unknown [id number] 2.16.840.1.260909.3.579 .2.1285 1945 Unknown [id number] 2.16.840.1.782070.3.579 .2.1285 1945 Unknown [id number] 2.16.840.1.219413.3.579 .2.1285 1945 Unknown [id number] 2.16.840.1.491543.3.579 .2.1285 1945 Unknown [id number] 2.16.840.1.982263.3.579 .2.1285 1945 Unknown [id number] 2.16.840.1.641390.3.579 .2.1285 1945 Unknown [id number] 2.16.840.1.787041.3.579 .2.1285 1945 Unknown [id number] 2.16.840.1.664149.3.579 .2.1285 1945 Unknown [id number] 2.16.840.1.286774.3.579 .2.1285 1945 Unknown [id number] 2.16.840.1.442961.3.579 .2.1285 1945 Unknown [id number] 2.16.840.1.068977.3.579 .2.1285 1945 Unknown [id number] 2.16.840.1.761400.3.579 .2.1285 1945 Unknown [id number] 2.16.840.1.602432.3.579 .2.1285 1945 Unknown [id number] 2.16.840.1.029780.3.579 .2.1285 1945 Unknown [id number] 2.16.840.1.402072.3.579 .2.1285 1945 Unknown [id number] 2.16.840.1.680436.3.579 .2.1285 1945 Unknown [id number] 2.16.840.1.592904.3.579 .2.1285 1945 Unknown [id number] 2.16.840.1.914256.3.579 .2.1285 1945 Unknown [id number] 2.16.840.1.375473.3.579 .2.1285 1945 Unknown [id number] 2.16.840.1.604221.3.579 .2.1285 1945 Unknown [id number] 2.16.840.1.135078.3.579 .2.1285 1945 Unknown [id number] 2.16.840.1.008731.3.579 .2.1285 1945 Unknown [id number] 2.16.840.1.977492.3.579 .2.1285 1945 Unknown [id number] 2.16.840.1.117239.3.579 .2.1285 1945 Unknown [id number] 2.16.840.1.806657.3.579 .2.1285 1945 Unknown [id number] 2.16.840.1.624063.3.579 .2.1285 1945 Unknown [id number] 2.16.840.1.989765.3.579 .2.1285 1945 Unknown [id number] 2.16.840.1.762434.3.579 .2.1285 1945 Unknown [id number] 2.16.840.1.604503.3.579 .2.1285 1945 Unknown [id number] 2.16.840.1.911070.3.579 .2.1285 1945 Unknown [id number] 2.16.840.1.722889.3.579 .2.1285 1945 Unknown [id number] 2.16.840.1.940184.3.579 .2.1285 1945 Unknown [id number] 2.16.840.1.804601.3.579 .2.1285 1945 Unknown [id number] 2.16.840.1.609178.3.579 .2.1285 1945 Unknown [id number] 2.16.840.1.056907.3.579 .2.1259 1945 Unknown [id number] 2.16.840.1.864021.3.579 .2.1258 1945 Unknown [id number] 2.16.840.1.868980.3.579 .2.1258 1945 Unknown [id number] 2.16.840.1.904888.3.579 .2.1258 1945 Unknown [id number] 2.16.840.1.443388.3.579 .2.1258 1945 Unknown [id number] 2.16.840.1.778621.3.579 .2.1258 1945 Unknown [id number] 2.16.840.1.305434.3.579 .2.1259 Unknown [id number] 2.16.840.1.983436.3.579 .2.531 Unknown [id number] 2.16.840.1.554363.3.579 .2.531 Unknown [id number] 2.16.840.1.011843.3.579 .2.531 Unknown [id number] 2.16.840.1.407022.3.579 .2.531 Unknown [id number] 2.16.840.1.497056.3.579 .2.531 Social History Date Type Detail Facility Start: 08-01-2020 End: 08-24-2022 Tobacco smoking status CTIS Never smoked tobacco (finding) [facility] Start: 1945 Sex Assigned At Female [facility] Start: 08-24-2022 Tobacco use and exposure Smoke less tobacco non-user [facility] Start: 12-27-2023 Alcohol intake Current non-dr muff winder of alcohol (finding) [facility] Start: 01-06-2022 End: 03-17-2023 History of Social function [facility] Start: 01-06-2022 End: 03-17-2023 Social connection and isolation panel [facility] How often do you att end rastafari or jewish services? Patient declined [facility] Do you belong to any clubs or organizations such as rastafari groups, unions, fraternal or athletic groups, or school groups? No [facility] Are you now , , , , never or living with a partner? [facility] How often to you hav e a drink containing alcohol? Never [facility] Do you feel stress - tense, restless, nervous, or anxious, or unable to sleep at night because your mind is troubled all the time - these days [OSQ] To some extent [facility] Start: 07-24-2019 Education 12 [facility] Start: 1945 Sex Assigned At Not on file P [facility] History of Present illness Narrative 12-23-2023 Sherry Sinclair APRN-CIRCULATION CLERK - 12/23/2023 10:45 AM EDT Note Date & Type Note Facility 12-23-2023 History of Present illness Narrative Subjective Patient ID: Belia Perry is a 78 y.o. female. JOS Dangelo presents to the office with concern of sore throat. She reports that she has been having sore throat for about 1.5 weeks. She reports she is also having increased fatigue. Denies fever, new myalgia, dysphagia, voice change. She reports she has been feeling nauseated, but recently started taking medication for her hives from dermatology and feels that this is what is causing her to have nausea. When asked about GERD symptoms, she states she does not feel that she has a lot of symptoms, but has been taking probiotics. Follows with rn manager for fibromyalgia in [place], Dr. Cordova, last follow up last month. The following portions of the patient's history were reviewed and updated as appropriate: allergies, current medications, past family history, past medical history, past social history, past surgical history, problem list, and medication reconciliation was completed including current medication and post discharge medication. Review of Systems Constitutional: Positive for fatigue. Negative for chills, diaphoresis, fever and unexpected weight change. HENT: Negative for congestion, postnasal drip, rhinorrhea, sinus pressure, sinus pain, trouble swallowing and voice change. Respiratory: Negative. Cardiovascular: Negative. Gastrointestinal: Negative. Objective Physical Exam Vitals and nursing note reviewed. Constitutional: General: She is not in acute distress. Appearance: Normal appearance. She is not ill-appearing. HENT: Head: Normocephalic and atraumatic. Right Ear: Tympanic membrane, ear canal and external ear normal. Left Ear: Tympanic membrane, ear canal and external ear normal. Nose: Nose normal. No congestion or rhinorrhea. Mouth/Throat: Mouth: Mucous membranes are moist. Pharynx: Oropharynx is clear. No oropharyngeal exudate or posterior oropharyngeal erythema. Eyes: Extraocular Movements: Extraocular movements intact. Conjunctiva/sclera: Conjunctivae normal. Pupils: Pupils are equal, round, and reactive to light. Neck: Vascular: No carotid bruit. Cardiovascular: Rate and Rhythm: Normal rate and regular rhythm. Pulses: Normal pulses. Heart sounds: Normal heart sounds. No murmur heard. Pulmonary: Effort: Pulmonary effort is normal. Breath sounds: Normal breath sounds. Abdominal: Palpations: Abdomen is soft. Musculoskeletal: Cervical back: Normal range of motion and neck supple. No rigidity or tenderness. Lymphadenopathy: Cervical: No cervical adenopathy. Skin: Capillary Refill: Capillary refill takes less than 2 seconds. Findings: No erythema or rash. Neurological: General: No focal deficit present. Mental Status: She is oriented to person, place, and time. Psychiatric: Mood and Affect: Mood normal. Behavior: Behavior normal. Assessment/Plan Assessment and HPI does not appear to be acute bacterial infection. However, throat irritation could be related to gastric reflux, she is agreeable to trial PPI and FU in 4-8 weeks to see if this is helping. She feels that throat irritation could be related to her Lupus, she is encouraged to FU with rn manager to discuss this. Loreto was seen today for sore throat. Diagnoses and all orders for this visit: Throat irritation Other orders - omeprazole (PriLOSEC) 20 mg capsule; Take 1 capsule (20 mg total) by mouth in the morning. LIANE Sellers 12/27/23 0808 documented in this encounter [facility] Progress note 03-16-2023 Note Date & Type Note Facility 03-16-2023 Note HNO ID: [id number] Author: Delbert Allen MD Service: ? Author Type: Physician Type: Progress Notes Filed: 03/16/2023 11:44 PM Note Text: PATIENT NAME: Belia Perry CLINIC NO.: [id number] ATTENDING PHYSICIAN: Delbert Allen MD DATE OF SERVICE: March 16, [address] Amanda Hannon,thank you for referring Mrs. Belia Perry for an opinion regarding low complement levels CHIEF COMPLAINT: I do not feel right HPI: Belia Perry is a 78 year old year old female with past medical history significant for fibromyalgia and probable systemic lupus erythematous followed by Dr. Hannon. She states that this diagnosis has been made within the past year and the patient is currently on hydroxychloroquine. She also has periods of lightheadedness and presyncope but denies vertigo. She actually had one episode of syncope which was stress related. She had a previous history of hives which she again associates with stress but does have not recurred for some time. She denies any abdominal pain. No history of diabetes, neuropathy, rash, miscarriages, DVT or recurrent infections. She denies any muscle weakness. Her work-up from a rheumatologic standpoint has included negative serologies for SLE and Sjogren's. Low C3 and C4, anticardiolipin IgM positive, negative salivary gland biopsy, positive direct Lizette test in the past and low C1q, CH 50 C2, C3 and C4. She has mild thrombocytopenia with platelets in the 130s to 140s range. No evidence of lymphocytosis. LDH is within normal limits. Her renal function is within normal limits. CRP not elevated normal renal function. Low CO2 low total complement low C4. Negative cryoglobulins. Normal IgG subclasses. 1 episode of weak complement bound direct Lizette test. No lupus inhibitor panel, negative hepatitis serologies as well as a normal serum protein electrophoresis as well as kappa lambda right chain ratios. She has undergone a previous hysterectomy as well as cholecystectomy Father of lung cancer Sister had breast cancer she has 1 brother with multiple myeloma. She does not smoke. She has 1 daughter and she is Current Outpatient Medications Medication Sig hydrOXYchloroQUINE (PLAQUENIL) 200 mg tablet Take by mouth once daily. calcium carbonate/vitamin D3 (CALCIUM + D ORAL) Take by mouth. Magnesium 250 mg tab Take 250 mg by mouth. Cholecalciferol, Vitamin D3, 25 mcg (1,000 unit) cap Take 1,000 Units by mouth once daily. ascorbic acid (VITAMIN C ORAL) Take by mouth. CIXCWLF-KXZN-YFZOD-OREG-CAPRYL ORAL Take by mouth. diphenhydramine HCl (ALLERGY MEDICINE ORAL) Take by mouth. L.acid/B.animalis,bifidum/FOS (PROBIOTIC COMPLEX ORAL) Take by mouth. ZINC ORAL Take by mouth. No current facility-administered medications for this visit. ALLERGIES Allergen Reactions Solomon Swelling Cortisone Unknown Penicillins Unknown PAST MEDICAL HISTORY Diagnosis Date Collagen disease (HCC) Hypocomplementemia (HCC) Immunologic disease (HCC) Thrombocytopenia (HCC) PAST SURGICAL HISTORY Procedure Laterality Date SECTION HX REMOVAL GALLBLADDER TOTAL ABDOM HYSTERECTOMY FAMILY HISTORY Problem Relation Age of Onset Lung Cancer Father Breast Cancer Sister other (bone marrow) Brother Cancer Brother Social History Tobacco Use Smoking status: Never Smokeless tobacco: Never Vaping Use Vaping Use: Never used Substance Use Topics Alcohol use: Never Drug use: Never REVIEW OF SYSTEMS GENERAL: No weight loss, malaise or fevers. No night sweats. HEENT: Negative for headaches, No changes in hearing or vision, no nose bleeds or other nasal problems. RESPIRATORY: Negative for cough, wheezing and shortness of breath CARDIOVASCULAR: Negative for chest pain, leg swelling and palpitations GI: Negative for abdominal discomfort, blood in stools or black stools and change in bowel habits : Negative for dysuria, frequency and incontinence MUSCULOSKELETAL: Negative for joint pain or swelling, back pain, and muscle pain. SKIN: Negative for lesions, rash, and itching. HEMATOLOGY/LYMPHOLOGY Negative for prolonged bleeding, bruising easily, and swollen nodes. NEURO: Negative for numbness or tingling of hands/feet. No weakness. PHYSICAL EXAMINATION: BP 136/74 Pulse 81 Temp 36.3 ?C (97.3 ?F) (Temporal) Resp 16 Ht 142 cm (4' 7.91 ) Wt 45.4 kg (100 lb) SpO2 99% BMI 22.49 kg/m? Wt 45.4 kg (100 lb) BMI 22.49 kg/m2 Last 3 Encounter Wt Readings: Date: Wt: 03/16/2023 45.4 kg (100 lb) General appearance:ECOG PERFORMANCE STATUS: 1- Restricted in physically strenuous activity. Carries out light duty. Patient in NAD. Skin: Skin color, texture, turgor normal. No rashes or lesions. Eyes: Anicteric sclera. Pupils are equally round and reactive to light. Extraocular movements are intact. Breast: No palpable breast masses. No nipple change or discharge. Lymph Nodes: No cervical (more content not included)... [facility] Consult note 08-01-2020 Note Date & Type Note Facility 08-01-2020 Consult note Note Date/Time August 01, 2020 3:42pm [facility] [place] [address] Hem/Onc Consult Note - OP Signed Patient: Belia Perry MR#: [id number] : 1945 Acct:[id number] Age/Sex: 75 / F Type: REG RCR Copies to: MD Bella Mendoza FNP-BC Todd E Rambasek, MD~ HPI Date/Time of Service: Date of Service: 08/01/2020 Time of Service: 15:41 Referring Provider/PCP: Referring Provider: Amanda Hannon MD PCP: BEV Osborne - History of Present Illness Reason for Consultation: Positive direct Lizette antibody testing with long history of low complement C3-C4 and fibromyalgia. Diagnosed with undifferentiated connective tissue disease followed by Dr. Hannon. Chief Complaint: Patient is here for new patient visit for +FRAN from Dr Varela. HPI: Dear Dr. Hannon, I had the great pleasure of seeing your patient in consultation. Thank you verymuch for your referral. As you know this is a 75-year-old lady who has been followed by you nearly 20 years for diagnosis of fibromyalgia. At her recent visit she brought a copy of blood testing from 1971 that showed that she had an auto antibody, specifically anti-RI that was detected during screeningfor Rh testing. She brought this document for my review and recently use that testing for direct antiglobulin (Lizette test) which did show weak positive IgG specific FRAN with 1+ positive polyspecific FRAN and 1+ positive complement FRAN. Laboratories were sent to evaluate for hemolytic anemia and she has normal hemoglobin 13.3, haptoglobin 58 (normal), reticulocyte count 0.049x10^6 (1.2%), and LDH normal at 148. She had normal liver function tests with total bilirubin0.5 and direct bilirubin 0.1. Iron studies revealed normal serum iron 75, iron saturation 23%, and ferritin 31.2. In February 2020 she also had evaluation for mildly elevated IgM of 375 with normal IgG 601 and IgA 97. MEGAN negative, low complement levels of C3 79 and C4 3 (although she has had several complement studies over the last 6 years which showed suppressed C4 and borderline to low C3 levels). Serum and urine protein electrophoresis showed no evidence of monoclonality. Free kappa 17.3, free lambda 17.7, and free kappa/lambda ratio 0.98 all within normal limits. Hepatitis B and C serologies also were negative for current or prior infection. I reviewed these results in detail with the patient. She reports that over the last 2 years she suddenly had the onset of feeling weak in the legs although this is not limited in her ambulation. She does not have any active synovitis other than the right index finger MCP joint showing some mild swelling and tenderness. She also reports periods of increased pruritus without signs of angioedema. She has been referred to dermatology and allergy/immunology. She was placed on CellCept by her cell tender helper with some improvement of her pruritus symptoms. She reports about an 8 pound weight loss over the past year. All of these findings she felt were concerning for evolution of her undifferentiatedconnective tissue disease to possible lupus. I informed the patient that this is within your specialty, but in terms of her positive FRAN this is not clinically relevant without evidence of hemolysis. I do not have any additionaltesting to add to testing that she has previously undergone other than bone marrow aspiration and biopsy which may detect a low-grade lymphoma. This could explain her sudden change of fatigue/weakness and recent urticaria. The patienthas not had any unusual infections, fever, chills, or other concerning constitutional symptoms. I informed her that I would review these recommendations in detail with her. Wediscussed potential bone marrow aspiration and biopsy for further evaluation, however I do not feel this is urgent given the fact that she has normal hemoglobin, normal renal and hepatic function, and no constitutional symptoms. She said that she will consider this possibility and may return in the next 2 weeks for a bone marrow aspiration and biopsy as an outpatient. Otherwise she may follow-up in hematology on an as-needed basis. PMFSH - History Attestation statement: The following information was validated with the patient. Source: Old Records Reviewed - Medical History Medical History: Medical History (Last Reviewed 08/01/20 @ 15:42 by Albania Garay MD) Collagen disease Fibromyalgia Hives Rash - Surgical History Surgical History: Surgical History (Last Reviewed 08/01/20 @ 15:42 by Albania Garay MD) History of section History of cholecystectomy History of hysterectomy - Family History Family History: Family History (Last Reviewed 08/01/20 @ 15:42 by Albania Garay MD) Sister Breast cancer Father Lung cancer Family/Other Stomach cancer Family/Other Breast cancer Father Heart disease - Social History Smoking Status: Never smoker Substance Use Type: None Home Medications & Allergies Allergies cortisone Allergy (Verified 08/01/20 14:59) Unknown Reaction Penicillins Allergy (Verified 08/01/20 14:59) Unknown Reaction Home Medications Cbd 08/01/20 [History] ascorbic acid (vitamin C) [Vitamin C] 500 mg PO DAILY 08/01/20 [History Confirmed 08/01/20] cholecalciferol (vitamin D3) [Vitamin D3] 25 mcg PO DAILY 08/01/20 [History Confirmed 08/01/20] cyanocobalamin (vitamin B-12) [Vitamin B-12] 1,000 mcg PO DAILY 08/01/20 [History Confirmed 08/01/20] hydroxychloroquine [Plaquenil] 200 mg PO DIRECTED 08/01/20 [History Confirmed 08/01/20] magnesium 250 mg PO DAILY 08/01/20 [History Confirmed 08/01/20] melatonin 5 mg PO HS PRN 08/01/20 [History Confirmed 08/01/20] omeprazole 20 mg PO DAILY 08/01/20 [History Confirmed 08/01/20] Subjective Data - Diagnosis DIAGNOSIS: 1. Undifferentiated connective tissue disorder, history of fibromyalgia 2. Positive direct antiglobulin test (had presence of auto antibody according to letter from 1971 in peripartum period). with no losses. 3. Recently noted fatigue in bilateral legs although this does not limit ambulation. 4. Unexplained pruritus 5. Unexplained low complement levels, followed by rheumatology. Subjective/ROS - Narrative: CONSTITUTIONAL: Negative for fatigue, negative for fever or night sweats. HEAD AND NECK: Negative for changes in hearing and vision. Negative for mouth ulcers, nasal congestion and nasal drainage. PULMONARY: Negative for chest pain, cough and dyspnea. CARDIOVASCULAR: Negative for claudication and irregular heartbeat/palpitations. GASTROINTESTINAL: Negative for abdominal pain, constipation, decreased appetite,diarrhea and vomiting. GENITOURINARY: Negative for dysuria and hematuria. ENDOCRINE: Negative for cold intolerance and heat intolerance. CENTRAL NERVOUS SYSTEM: Negative for gait disturbance and headache. PSYCHIATRIC: Negative for anxiety or depression. DERMATOLOGICAL: Negative for pruritus and rash. Negative for suspicious skin lesions. MUSCULOSKELETAL: Negative for back pain and bone/joint symptoms. HEMATOLOGICAL: Negative for bleeding and easy bruising. Negative for history of transfusion or thromboembolic disease ALLERGY: Negative for environmental allergies and food allergies. ROS Details: All systems reviewed & no additional complaints except as documented Objective - Height/Weight Height/Weight: Height 4 ft 9.48 in Weight 48.7 kg - Vital Signs Vital Signs: 08/01/20 15:10 Temperature 97.7 F Pulse Rate [Left Brachial] 76 Respiratory Rate 20 Blood Pressure [Right Arm] 139/74 02 Sat by Pulse Oximetry 98 - Pain Lower Back Pain Intensity: 5 - Chronic intermittent low back pain from fibromyalgia, unchanged - Emotional Needs Assessment Emotional Needs Assessment: Emotional Needs Identified? No Distress Screening Total 0 - ECOG Performance Status ECOG Score: 1 - Due to fatigue and reported leg weakness (although patient ambulates unassisted) Physical Exam Narrative: CONSTITUTIONAL: The patient is in no acute distress. HEAD / FACE: Normocephalic. EYES: Pupils are equal and reactive to light. Conjunctivae and lids are benign in appearance. Ocular movement intact. EARS: Hearing grossly intact. NOSE / MOUTH / THROAT: Nose, mouth, tongue and oropharynx are benign in appearance. No signs of inflammation. NECK / THYROID: Neck is supple. Thyroid is symmetrical, without thyromegaly, masses or palpable nodules. LYMPHATIC: No palpable cervical, supraclavicular, axillary, or inguinal adenopathy. RESPIRATORY: Normal to inspection. Lungs clear to auscultation and percussion. No wheezing, rales, rhonchi or rubs. Normal effort. CARDIOVASCULAR: Regular rate and rhythm. No murmurs, gallops, or rubs. VASCULAR: Carotid, radial, femoral and pedal pulses present bilaterally. No bruits. ABDOMEN: Bowel sounds normoactive. Soft, nontender and non-distended. No hepatosplenomegaly. No masses. GENITOURINARY: No CVA tenderness. No suprapubic fullness or tenderness. No groinadenopathy. No evidence of hernias. INTEGUMENTARY: The skin is unremarkable. No rashes. No suspicious lesions BACK / SPINE: The back is nontender. MUSCULOSKELETAL: Normal musculature, no joint deformities or abnormalities, normal range of motion for all four extremities. EXTREMITIES: No edema, cyanosis or clubbing. No Jeff sign. NEUROLOGICAL: Alert and oriented. Cranial nerves intact. No gross motor or sensory deficits. PSYCHIATRIC: No anxiety or evidence of depression. Results - Labs Labs: 07/25/2020: White blood cells 4200, absolute neutrophil count 2700, hemoglobin 13.3, hematocrit 38, platelet count 151,000, absolute reticulocyte count 0.049, percent reticulocyte count 1.4, haptoglobin 58, LDH 148 Iron 75, iron saturation 23%, ferritin 31.2, total bilirubin 0.5, direct bilirubin less than 0.1 07/17/2020: Complement C3 79, complement C4 3 (complement C4 has been suppressedfor many years), C1q antibodies pending weak positive IgG specific FRAN with 1+ positive polyspecific FRAN and 1+ positivecomplement FRAN 02/15/2020: Sodium 140, potassium 4, BUN 14, creatinine 0.79, EGFR greater than 60, glucose 78, calcium 9.3, total bilirubin 0.6, AST 21, ALT 15, alkaline phosphatase 89, serum total protein 6.6, albumin 4.0, M spike not observed IgG 601, IgA 97, IgM 375, serum and urine immunofixation negative for monoclonality, MEGAN negative, free kappa 17.3, free lambda 17.7, free kappa/lambda ratio 0.98 12/05/2019: PT 41.4, thrombin time 17.8, dilute Fred viper venom time 39.2, negative for lupus anticoagulant - Impressions No available imaging for review Assessment and Plan (1) Positive direct Lizette test This is a 75-year-old lady who has been followed by [facility] for several years for undifferentiated connective tissue disease and has been on Plaquenil, recently CellCept for pruritus. She was noted to have a low positiveCoombs test for specific IgG, and 1+ for polyspecific and complement FRAN. She also reports that she had positive antibody testing in 1971 and brought mediallythe original paperwork today. This revealed that she had an antiantibody and itseems from this paperwork that she had prior Rh- blood type became Rh+, thus raising suspicion for auto antibodies. We discussed in great detail that multiple pregnancies may be associated with autoantibodies. This may be a normal variant, associated with autoimmune disease, associated with infectious exposures or drugs, or associated with malignant disease. At this time she doesnot have any active hemolysis and her symptoms of pruritus as well as mild weakness that does not limit activity may not necessarily be associated with herlow-grade auto antibody. At this time I do not see any active indication for therapy for her positive Lizette test. We did discuss that low-grade lymphoma may be associated with pruritus and fatigue and could have been partially suppressed by her prior CellCept therapy, therefore to complete her work-up we could consider bone marrow aspiration and biopsy. There is no urgency to this decision and she is considering whether or not to proceed with this intervention. Otherwise I would advise her to continue follow-up with her primary rn manager for her low complement and recent symptoms. She may return to hematology on an as-needed basis. This is a high complexity visit over 1 hour for extensive review of prior records, review of laboratories, explanation of disease pathology with the patient, and discussion of potential bone marrow aspiration and biopsy. I would like to thank you very much for the courtesy of this referral. The patient will contact me if she wishes to proceed with bone marrow biopsy, otherwise may follow-up on an as-needed basis. Should you have any questions regarding the management of this patient, please do not hesitate to contact me. Sincerely, Albania Garay MD, FACP Medical Oncology (2) Connective tissue disease, undifferentiated Longstanding undifferentiated connective tissue disease versus fibromyalgia. Continues ongoing follow-up with Dr. Hannon. Symptoms are managed with Plaquenil therapy. (3) Low complement measurement Patient has low C3 and C4 on recent laboratory evaluation. I defer further work-up to Dr. Hannon. (4) Leg weakness, bilateral The patient notes gradual onset of increasing weakness in her bilateral legs although does not have associated back pain and she ambulates without assistance, standing up and unremarkable gait to exam table. She reports that she is doing exercises and squats at home to build muscles. At this time I do not feel this is directly related to her abnormal Lizette test. (5) Pruritus The patient has been evaluated by dermatology and immunology for recurrent pruritus of unclear etiology. Dr. Chavez of immunology did not feel that pruritus was associated with hereditary angioedema syndrome based on work-up today. She does not have any palpable adenopathy suggestive of Hodgkin's lymphoma. Symptoms recently improved with low-dose CellCept. We discussed unlikely correlation with possible low-grade lymphoma and she was offered bone marrow aspiration biopsy for further work-up. At this time she declines this study but will contact me if she wishes to proceed. - Time with Patient Total Time Spent with Patient: 60 min Coordination of Care & Counseling Time: Greater than 50% of time spent with patient was for coordination of care (as documented) and [id number] counseling of patient and/or family. Dictated By: Albania Garay MD DD/ [id number] Signed By: <Electronically signed by MD Albania Garay> 08/01/20 1624 [facility] Work Phone: Evaluation note Note Date & Type Note Facility Evaluation note No assessment information availa ble [facility] Work Phone: Evaluation note Note Date & Type Note Facility Evaluation note Diagnosis Throat irritation- Primary documented in this encounter [facility] Instructions Attachments Note Date & Type Note Facility Instructions The following attachments cannot be sent through Care Everywhere.Omeprazole, ADULT (Irish)documented in this encounter [facility] Family History No Family History Records Found Relationship Condition Age at Onset Recorded Date/T luis alberto sister Malignant neoplasm of breast Unknown father Malignant neoplasm of lung Unknown family member Malignant neoplasm of stomach Unknown family member Malignant neoplasm of breast Unknown father Heart disease Unknown Advance Directives No Advanced Directives Records Found Advance Directive Response Recorded Date/ Time Advance Directives No October 27, 2017 9:08am Advance Directive Response Recorded Date/ Time Advance Directives No October 27, 2017 8:08am Chief Complaint and Reason for Visit Chief Complaint Hypocomplementemia Chief Complaint Fatigue Hypocompleme ntemia Hypocomplementemia Summary Purpose Additional Source Comments Care Teams (unrecognized sec tion and content) Team Status: Active Member Role Status Dates ADELINA Osborne-BC Primary Care Provider Active Team Status: Inactive Member Role Status Dates Bella Tsai [facility] Primary Care Provider Active Amanda Hannon MD Attending Provider Active Team Status: Active Member Role Status Dates Bella Tsai [facility] Primary Care Provider Active Amanda Hannon MD Attending Provider Active Mailroom Personnel Relationship Specialty Start Date End Date Mary Emery MD [address] [id number] PCP - General Internal Medicine 04/30/23 [facility] Goals (unrecognized section and content) Goals may be documented in a n alternate sectionGoals may be documented in an alternate sectionGoals may be documented in an alternate sectionGoals may be documented in an alternate sectionGoals may be documented in an alternate sectionGoals may be documented in an alternate sectionNot on filedocumented as of this encounter INFORMATION SOURCE (unrecogn ized section and content) DATE CREATED AUTHOR [facility] DATE CREATED AUTHOR AUTHOR'S ORGANIZ ATION 03/23/2023 [facility] DATE CREATED AUTHOR AUTHOR'S ORGANIZ ATION 06/15/2023 [facility] DATE CREATED AUTHOR AUTHOR'S ORGANIZ ATION 05/10/2024 [facility] DATE CREATED AUTHOR AUTHOR'S ORGANIZ ATION 05/11/2024 [facility] EPIC Reason for Visit (unrecogniz ed section and content) Reason Comments Sore Throat FOR RECORDS PERTAINING TO PATIENTS WHO ARE OR HAVE BEEN ENROLLED IN A CHEMICAL DEPENDENCY/SUBSTANCEABUSE PROGRAM, SOME INFORMATION MAY BE OMITTED. This clinical summary was aggregated from multiple sources. Caution should be exercised in using it in the provision of clinical care. This summary normalizes information from multiple sources, and as a consequence, information in this document may materially change the coding, format and clinical context of patient data. In addition, data may be omitted in some cases. CLINICAL DECISIONS SHOULD BE BASED ON THE PRIMARY CLINICAL RECORDS. [facility]. provides no warranty or guarantee of the accuracy or completeness of information in this document.
[2024-07-14 12:46] LABS: Bilirubin Urine NEGATIVE (NEGATIVE); Blood Urine NEGATIVE (NEGATIVE); Clarity Urine CLEAR (CLEAR); Color Urine YELLOW (YELLOW); Glucose Urine UA NEGATIVE (NEGATIVE); Ketones Urine TRACE mg/dL (NEGATIVE); Leukocyte Esterase Urine NEGATIVE (NEGATIVE); Nitrite Urine NEGATIVE (NEGATIVE); Protein Urine NEGATIVE (NEG/TRACE); Specific Gravity Urine >=1.030 (1.005-1.025); Urobilinogen Urine 0.2 EU/dL (0.2-1.0); pH Urine 5.5 (5.0-9.0)
[2024-07-14 12:53] LABS: Bacteria Urine TRACE #/HPF (NONE SEEN); Cast Seen? NONE SEEN #/LPF (NONE SEEN); Crystals Seen? None Seen #/HPF (None Seen); Mucus Urine TRACE (NONE SEEN); RBC Urine 0-2 #/HPF (0-2); Squamous Epithelial Cell Urine RARE #/LPF (NONE/RARE); WBC Urine 0-2 #/HPF (NONE SEEN)
[2024-07-14 13:01] LABS: Basophils Percent Auto 0.7 % (0.2-2.0); Eosinophils Absolute Auto 0.1 10^3/uL (0.0-0.7); Eosinophils Percent Auto 1.5 % (0.9-7.0); Hematocrit 39.6 % (36.0-48.0); Hemoglobin 14.2 g/dL (12.0-16.0); Immature Granulocytes Abs Auto 0.09 10^3/uL (0.00-0.03); Immature Granulocytes Pct Auto 1.5 % (0.0-0.5); Lymphocytes Absolute Auto 1.4 10^3/uL (1.2-3.8); Lymphocytes Percent Auto 23.2 % (20.5-60.0); Mean Corpuscular HGB Conc 35.9 g/dL (29.9-35.2); Mean Corpuscular Hemoglobin 32.1 pg (26.7-34.0); Mean Corpuscular Volume 89.4 fL (81.0-99.0); Mean Platelet Volume 10.4 fL (9.5-13.5); Monocytes Absolute Auto 0.5 10^3/uL (0.3-0.8); Monocytes Percent Auto 8.4 % (1.7-12.0); Neutrophils Absolute Auto 3.9 10^3/uL (1.4-6.5); Neutrophils Percent Auto 64.7 % (43.0-75.0); Platelet Count 168 10^3/uL (150-450); Red Blood Count 4.43 10^6/uL (4.20-5.40); Red Cell Distribution Width 11.9 % (11.0-15.0)
[2024-07-14 13:06] LABS: C Reactive Protein <0.50 mg/dL (<=0.50); Estimated GFR (African America >60 (>=60 mL/min/1.73m^2); Estimated GFR (Non-African Ame >60 (>=60 mL/min/1.73m^2)
[2024-07-15 09:17] LABS: Complement C3, Serum 88 mg/dL (82-167); Complement C4, Serum 2 mg/dL (12-38)
== END 2024-07-14 12:23 | disposition home or self-care (01) ==
LOC: LAB 12:24
PROVIDERS: Visit Provider Internal Medicine Rheumatology
DX: M35.9 Systemic involvement of connective tissue, unspecified (principal)
CPT/HCPCS: 36415; 81001; 82565; 85025; 85652; 86140; 86160